=== PATIENT | male | born 1975 | race Caucasian/White ===

== ENCOUNTER 2019-12-08 09:22 | Emergency (ER) | payer OTHER, SELFPAY ==
[2019-12-08 09:23] VITALS: BP 135/87; PULSE 73; RESP 16; TEMP 36.6; O2SAT 96; BMI 29.5
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
--- NOTE | 2019-12-08 09:44 | ED.DEP ---
ED Disposition - Plan for ED Patient: Disposition: Home or Assisted Living Instructions: CONCUSSION, No Wake Up Referrals: Devang Kolb MD [Primary Care Provider] - As Needed Additional Instructions: Hot shower and warm bath to relax the muscles in your neck. Tylenol and Motrin for neck pain and any headaches. You have a mild head injury probably early minor concussion. Plenty of fluids and rest. Increase activity as tolerated. Follow-up if not improving.
== END 2019-12-08 09:56 | disposition home or self-care (01) ==
PROVIDERS: Emergency Provider Emergency Medicine; Family Provider Family Medicine; PCP Family Medicine
DX: S06.0X0A Concussion without loss of consciousness, initial encounter (principal); V53.5XXA Driver of pick-up truck or van injured in collision with car, pick-up truck or van in traffic accident, initial encounter; Y93.9 Activity, unspecified; Y92.9 Unspecified place or not applicable; Y99.9 Unspecified external cause status
CPT/HCPCS: 99282

== ENCOUNTER → 2020-10-31 09:40 | Outpatient (CLI) | payer OTHER, SELFPAY ==
[2020-10-31 12:20] LABS: Absolute Lymphocyte Count 1.45 X10^3/uL (0.83-4.51); Absolute Neutrophil Count 2.6 X10^3/uL (2.0-7.7); Basophil# 0.02 X10^3/uL; Basophil% 0.4 % (0-1); Eosinophil# 0.12 X10^3/uL; Eosinophils% 2.6 % (0-5); Hematocrit 45.1 % (40-54); Hemoglobin 15.4 g/dL (13.0-16.5); Lymphocyte # 1.45 X10^3/ul (4.0); Mean Corp Hgb Conc 34.1 g/dL (32-36); Mean Corpuscular Hgb 29.7 pg (27.0-32.0); Mean Corpuscular Volume 86.9 fL (80-94); Mean Platelet Vol. 10.5 fl (6.2-12.0); Monocyte# 0.45 X10^3/uL; Monocyte% 9.6 % (0-10); NRBC Flagged by Analyzer 0 % (0-5); Neutrophil # 2.62 X10^3/uL (2.7-7.7); Neutrophil % 56.2 % (47-70); Platelet Count 225 K/mm3 (150-450); RBC Distribution Width CV 12.6 % (11.6-14.6); RBC Distribution Width SD 39.7 fl (35.1-43.9); Red Blood Count 5.19 M/mm3 (4.6-6.2); White Blood Count 4.7 K/mm3 (4.4-11.0)
[2020-10-31 12:58] LABS: Anion Gap 5 (5-15); BUN 17 mg/dL (7-18); BUN/Creat Ratio 14.7 RATIO (10-20); Calcium,Total 8.8 mg/dL (8.5-10.1); Chloride 110 mmol/L (98-107); Creatinine, Serum 1.16 mg/dL (0.70-1.30); EST Glomerular Filtration Rate 73 mL/min (>60); Est Glom Filt Rate - Afr Amer 88 mL/min (>60); Glucose 90 mg/dL (74-106); Potassium 3.8 mmol/L (3.5-5.1); Sodium Level 140 mmol/L (136-145); Thyroid Stim Hormone (TSH) 1.12 uIU/mL (0.358-3.74)
== END ==
PROVIDERS: PCP Family Medicine; Referring Provider Family Medicine; Visit Provider Family Medicine
DX: R07.9 Chest pain, unspecified (principal)
CPT/HCPCS: 36415; 80048; 84443; 85025

== ENCOUNTER → 2024-09-06 | Outpatient (CLI) | payer OTHER, SELFPAY ==
[2024-09-06 12:44] LABS: Anion Gap 7 (5-15); BUN 15 mg/dL (7-18); Calcium,Total 9.1 mg/dL (8.5-10.1); Chloride 110 mmol/L (98-107); Cholesterol 162 mg/dL (200); Creatinine, Serum 1.07 mg/dL (0.70-1.30); EST Glomerular Filtration Rate 79 mL/min (>60); Est Glom Filt Rate - Afr Amer 95 mL/min (>60); Glucose 99 mg/dL (74-106); High Density Lipoprotein 45 mg/dL; Potassium 4.1 mmol/L (3.5-5.1); Sodium Level 143 mmol/L (136-145); Triglycerides 192 mg/dL; Very Low Density Lipoprotein 38 mg/dL (5-40)
== END | disposition home or self-care (01) ==
LOC: MFPLAB 09:02
PROVIDERS: Nurse Practitioner Family; PCP Family Medicine; Visit Provider Family Medicine
DX: Z13.1 Encounter for screening for diabetes mellitus (principal); Z13.220 Encounter for screening for lipoid disorders
CPT/HCPCS: 36415; 80048; 80061

== ENCOUNTER → 2025-11-23 | Outpatient (CLI) | payer OTHER, SELFPAY ==
--- OUTSIDE RECORDS SUMMARY | 2025-11-23 07:58 | XMS RPT_ITS | CCD ---
Author Organization [facility] Care Team Providers Care Irrigator Name Role Phone Unavailable Primary Care Provider Henrry Damon Attending Unavailable Henrry Hickey Primary Care Unavailable Unavailable Primary Care Provider LUIS Shook Referring Unavailable SHELBY, LUIS Referring Unavailable LUIS MORENO Attending Unavailable LUIS MORENO Referring Unavailable BEATA DOUGHERTY Attending Unavailable , BEATA Referring Unavailable BEATA DOUGHERTY Referring Unavailable LUIS MORENO Attending Unavailable Allergies Allergy Classification Reported Allergen(s) Allergy Type Date of Onset Reaction(s) Facility (3 sources) Penicillins; Translations: [PENICILLINS] Drug Allergy 06-08-2012 [facility] (1 source) Penicillins Drug allergy (disorder) 12-08-2019 Repository (6 sources) Penicillins Drug Allergy 06-08-2012 [facility] Medications Current Medications Medication Drug Class(es) Dates Sig (Normalized) Sig (Original) Cetirizine (7 sources) Histamine-1 Receptor Antagonist CETIRIZINE HCL (ZYRT EC ORAL) Take by mouth. Active CETIRIZINE HCL ( ZYRTEC ORAL) Take by mouth. 0 Active Comment on above: Take by mouth. doxycycline monohydrate 100 mg oral capsule (1 source) Tetracycline-cla ss Drug Start: 07-23-2025 End: 09-03-2025 take 1 capsule by mouth twice daily doxycycline monohydrate (MONODOX) 100 mg capsule Take 1 capsule by mouth two times a day. 84 capsule 07/23/2025 09/03/2025 Active predniSONE 10 mg oral tablet (4 sources) Start: 07-20-2025 End: 08-04-2025 predniSONE (DELTASONE) 10 mg tablet Take 4 tabs daily x5 days, then 2 tabs daily for 5 days, then 1 tab daily for 5 days. 35 tablet 07/20/2025 08/04/2025 Active Start: 06-27-2023 End: 07-06-2023 predniSONE (DELTASONE) 10 mg tablet Indications: Allergic contact dermatitis due to plants, except food Take 4 tabs daily for 3 days, then 2 tabs daily for 3 days, then 1 tab daily for 3 days with food. 21 tablet 0 06/27/2023 07/06/2023 Active Comment on above: Take 4 tabs daily fo r 3 days, then 2 tabs daily for 3 days, then 1 tab daily for 3 days with food. traMADol hydrochloride 50 mg oral tablet (3 sources) Opioid Agonist Start: 07-20-2025 End: 07-23-2025 take 1-2 tablets by mouth every eight hours as needed for pain traMADol (ULTRAM) 50 mg tablet Indications: Effusion of left knee Take 1-2 tablets by mouth every 8 hours as needed for pain for up to 3 days. for pain. 12 tablet 07/20/2025 07/23/2025 Active Completed/Discontinued Medications Medication Drug Class(es) Dates Sig (Normalized) Sig (Original) betamethasone 3 mg/ml / betamethasone acetate 3 mg/ml injectable suspension (2 sources) Corticosteroid Start: 04-06-2025 End: 04-06-2025 betamethasone acetate-betamethason e sodium phosphate 6 mg injection (CELESTONE) Start: 04-06-2025 End: 04-06-2025 6 mg, Injection - FOR ORTHO USE ONLY, ONCE, 1 dose, Starting on Wed04/06/25 at 1158, Until Wed04/06/25 at 1158 30 ml bupivacaine hydrochloride 5 mg/ml injection (4 sources) Amide Local Anesthetic Start: 07-20-2025 End: 07-20-2025 BUPivacaine (PF) 0.5 % (5 mg/mL) 4 mL injection Start: 07-20-2025 End: 07-20-2025 4 mL, Injection - FOR ORTHO USE ONLY, ONCE, 1 dose, Starting on Wed07/20/25 at 1619, Until Wed07/20/25 at 1619 Start: 04-06-2025 End: 04-06-2025 BUPivacaine (PF) 0.5 % (5 mg /mL) 4 mL injection Start: 04-06-2025 End: 04-06-2025 4 mL, Injection - FOR ORTHO USE ONLY, ONCE, 1 dose, Starting on Wed04/06/25 at 1158, Until Wed04/06/25 at 1158 cyclobenzaprine hydrochloride 10 mg oral tablet (4 sources) Muscle Relaxant Start: 03-02-2022 End: 04-06-2025 take 1 tablet by mouth every eight hours as needed cyclobenzaprine (FLEXERIL) 10 mg tablet Take 1 tablet by mouth three times daily as needed for muscle spasm. 21 tablet 03/02/2022 04/06/2025 Discontinued (Course of therapy completed) Comment on above: Take 1 tablet by [facility] three times daily as needed for muscle spasm. fluticasone (4 sources) Corticosteroid End: 04-06-2025 FLUTICASONE PROPIONATE (FLONASE NASAL) Use in the nose. 04/06/2025 Discontinued (Course of therapy completed) FLUTICASONE PROP IONATE (FLONASE NASAL) Use in the nose. Active FLUTICASONE PROP IONATE (FLONASE NASAL) Use in the nose. 0 Active Comment on above: Use in the nose. 10 ml lidocaine hydrochloride 10 mg/ml injection (4 sources) Antiarrhythmic, Amide Local Anesthetic Start: 07-20-2025 End: 07-20-2025 lidocaine (PF) 10 mg/mL (1 %) 4 mL injection (XYLOCAINE) Start: 07-20-2025 End: 07-20-2025 4 mL, Injection - FOR ORTHO USE ONLY, ONCE, 1 dose, Starting on Wed07/20/25 at 1619, Until Wed07/20/25 at 1619 Start: 04-06-2025 End: 04-06-2025 lidocaine (PF) 10 mg/mL (1 % ) 4 mL injection (XYLOCAINE) Start: 04-06-2025 End: 04-06-2025 4 mL, Injection - FOR ORTHO USE ONLY, ONCE, 1 dose, Starting on Wed04/06/25 at 1158, Until Wed04/06/25 at 1158 mometasone furoate 0.05 mg/actuat metered dose nasal spray (4 sources) Corticosteroid End: 04-06-2025 mometasone (NASONEX) 50 mcg/actuation nasal spray Use 2 Sprays in the nose once daily. 04/06/2025 Discontinued (Course of therapy completed) Comment on above: Use 2 Sprays in the nose once daily. Problems Active Problems Problem Classification Problem Date Documented Date Episodic/Chronic Allergic reactions (1 source) Allergic contact dermatitis caused by plant material; Translations: [Allergic contact dermatitis due to plants, except food] 06-27-2023 Episodic Other infections; including parasitic (1 source) Lyme disease; Translations: [Lyme disease, unspecified] 07-23-2025 Episodic Other injuries and conditions due to external causes (2 sources) Injury of left knee; Translations: [Unspecified injury of left lower leg, initial encounter] 03-28-2025 Episodic Other nervous system disorders (1 source) Other chronic pain; Translations: [Chronic pain of left knee] Onset: 07-20-2025 Chronic Other non-traumatic joint disorders (3 sources) Effusion of joint of left knee; Translations: [Effusion, left knee] 04-06-2025 Episodic Other non-traumatic joint disorders (2 sources) Pain in left knee; Translations: [Pain in joint, lower leg] Onset: 07-20-2025 07-20-2025 Episodic Other non-traumatic joint disorders (2 sources) Effusion, left knee; Translations: [Effusion of left knee] Onset: 07-20-2025 Episodic Other screening for suspected conditions (not mental disorders or infectious disease) (1 source) Encounter for screening for diabetes mellitus; Translations: [Encounter for screening for diabetes mellitus] Onset: 09-29-2024 Episodic Residual codes; unclassified (1 source) FH: Gout; Translations: [Family history of other diseases of the musculoskeletal system and connective tissue] 07-20-2025 Episodic Residual codes; unclassified (1 source) Family history of other diseases of the musculoskeletal system and connective tissue; Translations: [Family history of gout] Onset: 07-20-2025 Episodic Unclassified (2 sources) Injury of left knee 03-29-2025 Unclassified (1 source) Effusion of joint of left knee 07-20-2025 Past or Other Problems Problem Classification Problem Date Documented Da te Episodic/Chronic Other injuries and conditions due to external causes (1 source) Unspecified injury of left lower leg, initial encounter; Translations: [Injury of left knee, initial encounter] Onset: 03-28-2025 Episodic Results Test Name Value Interpretation Reference Range Facility B. burgdorferi IgG and IgM p danette (S)on 07-21-2025 B. burgdorferi IgG+IgM Qn (S) Positive Abnormal Negative [facility] Comment on above: Order Comment: Jared espino Type: BLOOD SPECIMEN Ordering Facility: [facility] Address: [address] [place] [address] Result Comment: Borr manuela burgdorferi antibody screening test indicates possible presence of Lyme-specific antibodies. Current testing guidelines recommend that all positive or equivocal screen test results be confirmed by a standardized Lyme immunoblot assay following CDC criteria. For final interpretation please refer to Lyme immunoblot result(s). Clinical and epidemiological correction is required. Lyme Western Blot confirmation test has been ordered and billed. Performed By: #### 3 4942-3, 17014-9 #### [facility] CLIA [id number] [address] [place] [address] [place] B. burgdorferi IgG panel IB (S)on 07-21-2025 B. burgdorferi IgG band pattern IB (S) [Interp] p-93 Normal [facility] Comment on above: Order Comment: Jared espino Type: BLOOD SPECIMEN Ordering Facility: [facility] Address: [address] [place] [address] Result Comment: p-66 p-45 p-41 p-39 p-30 p-28 p-18 Performed By: #### 3 4942-3, 24850-5 #### [facility] CLIA [id number] [address] [place] [address] [place] B. burgdorferi IgG IB Ql (S) Positive Abnormal Negative [facility] Comment on above: Order Comment: Jared espino Type: BLOOD SPECIMEN Ordering Facility: [facility] Address: [address] [place] [address] Result Comment: CDC criteria for a positive Western blot are the presence of >=5 bands for IgG. Performed By: #### 3 4942-3, 25707-6 #### [facility] CLIA [id number] [address] [place] [address] [place] INTERPRETATION (LYME ABS/WB) Normal [facility] Comment on above: Order Comment: Specartie espino Type: BLOOD SPECIMEN Ordering Facility: [facility] Address: [address] [place] [address] Result Comment: Anti bodies against Borrelia burgdorferi were detected by the IgG Western Blot. This could represent either a previous exposure (i.e. remote disease) or the latter stage of a recent infection. If differentiation of is desired, then repeat screening with reflex to both IgM and IgG Western Blot is recommended. Performed By: #### 3 4942-3, 86882-9 #### [facility] CLIA [id number] [address] [place] [address] [place] [address] [place] CBC W Auto Differential pane l (Bld)on 07-21-2025 Basophils (Bld) [#/Vol] 10*3/uL Normal <0.11 [facility] Comment on above: Order Comment: Jared espino Type: BLOOD SPECIMEN Ordering Facility: [facility] Address: [address] [place] [address] Performed By: #### 5 7021-8 #### [facility] CLIA [id number] [address] [place] [address] [place] Basophils/100 WBC (Bld) 0.1 % Normal [facility] Comment on above: Order Comment: Jared espino Type: BLOOD SPECIMEN Ordering Facility: [facility] Address: [address] [place] [address] Performed By: #### 5 7021-8 #### [facility] CLIA [id number] [address] [place] Differential cell count method Nom (Bld) Auto Normal [facility] Comment on above: Order Comment: Speci men Type: BLOOD SPECIMEN Ordering Facility: [facility] Address: [address] [place] [address] Performed By: #### 5 7021-8 #### [facility] CLIA [id number] [address] [place] [address] [place] Eosinophils (Bld) [#/Vol] 10*3/uL Normal <0.46 [facility] Comment on above: Order Comment: Speci men Type: BLOOD SPECIMEN Ordering Facility: [facility] Address: [address] [place] [address] Performed By: #### 5 7021-8 #### [facility] CLIA [id number] [address] [place] [address] [place] Eosinophils/100 WBC (Bld) 0.0 % Normal [facility] Comment on above: Order Comment: Speci men Type: BLOOD SPECIMEN Ordering Facility: [facility] Address: [address] [place] [address] Performed By: #### 5 7021-8 #### [facility] CLIA [id number] [address] [place] [address] [place] Erythrocyte distribution width (RBC) [Ratio] 13.0 % Normal 11.5-15.0 [facility] Comment on above: Order Comment: Speci men Type: BLOOD SPECIMEN Ordering Facility: [facility] Address: [address] [place] [address] Performed By: #### 5 7021-8 #### [facility] CLIA [id number] [address] [place] [address] [place] Hematocrit (Bld) [Volume fraction] 43.0 % Normal 39.0-51.0 [facility] Comment on above: Order Comment: Speci men Type: BLOOD SPECIMEN Ordering Facility: [facility] Address: [address] [place] [address] Performed By: #### 5 7021-8 #### [facility] CLIA [id number] [address] [place] [address] [place] Hemoglobin (Bld) [Mass/Vol] 14.4 g/dL Normal 13.0-17.0 [facility] Comment on above: Order Comment: Speci men Type: BLOOD SPECIMEN Ordering Facility: [facility] Address: [address] [place] [address] Performed By: #### 5 7021-8 #### [facility] CLIA [id number] [address] [place], [place] [id number] [place] [address] [place] Immature granulocytes (Bld) [#/Vol] 0.03 10*3/uL Normal <0.10 [facility] Comment on above: Order Comment: Speci men Type: BLOOD SPECIMEN Ordering Facility: [facility] Address: [address] [place] [address] Performed By: #### 5 7021-8 #### [facility] CLIA [id number] [address] [place] Immature granulocytes/100 WBC (Bld) 0.2 % Normal [facility] Comment on above: Order Comment: Speci men Type: BLOOD SPECIMEN Ordering Facility: [facility] Address: [address] [place] [address] Performed By: #### 5 7021-8 #### [facility] CLIA [id number] [address] [place] Lymphocytes (Bld) [#/Vol] 0.81 10*3/uL Low 1.00-4.00 [facility] Comment on above: Order Comment: Speci men Type: BLOOD SPECIMEN Ordering Facility: [facility] Address: [address] [place] [address] Performed By: #### 5 7021-8 #### [facility] CLIA [id number] [address] [place] [address] [facility] Lymphocytes/100 WBC (Bld) 5.4 % Normal [facility] Comment on above: Order Comment: Speci men Type: BLOOD SPECIMEN Ordering Facility: [facility] Address: [address] [place] [address] Performed By: #### 5 7021-8 #### [facility] CLIA [id number] [address] [place] [address] [place] MCH (RBC) [Entitic mass] 28.5 pg Normal 26.0-34.0 [facility] Comment on above: Order Comment: Speci men Type: BLOOD SPECIMEN Ordering Facility: [facility] Address: [address] [place] [address] Performed By: #### 5 7021-8 #### [facility] CLIA [id number] [address] [place] [address] [place] MCHC (RBC) [Mass/Vol] 33.5 g/dL Normal 30.5-36.0 [facility] Comment on above: Order Comment: Speci men Type: BLOOD SPECIMEN Ordering Facility: [facility] Address: [address] [place] [address] Performed By: #### 5 7021-8 #### [facility] CLIA [id number] [address] [place] [address] [place] MCV (RBC) [Entitic vol] 85.1 fL Normal 80.0-100.0 [facility] Comment on above: Order Comment: Speci men Type: BLOOD SPECIMEN Ordering Facility: [facility] Address: [address] [place] [address] Performed By: #### 5 7021-8 #### [facility] CLIA [id number] [address] [place] [address] [place] Monocytes (Bld) [#/Vol] 0.53 10*3/uL Normal <0.87 [facility] Comment on above: Order Comment: Speci men Type: BLOOD SPECIMEN Ordering Facility: [facility] Address: [address] [place] [address] Performed By: #### 5 7021-8 #### [facility] CLIA [id number] [address] [place] [address] [place] Monocytes/100 WBC (Bld) 3.5 % Normal [facility] Comment on above: Order Comment: Speci men Type: BLOOD SPECIMEN Ordering Facility: [facility] Address: [address] [place] [address] Performed By: #### 5 7021-8 #### [facility] CLIA [id number] [address] [place] [address] [place] Neutrophils (Bld) [#/Vol] 13.58 10*3/uL High 1.45-7.50 [facility] Comment on above: Order Comment: Speci men Type: BLOOD SPECIMEN Ordering Facility: [facility] Address: [address] [place] [address] Performed By: #### 5 7021-8 #### [facility] CLIA [id number] [address] [place] [address] [place] Neutrophils/100 WBC (Bld) 90.8 % Normal [facility] Comment on above: Order Comment: Speci men Type: BLOOD SPECIMEN Ordering Facility: [facility] Address: [address] [place] [address] Performed By: #### 5 7021-8 #### [facility] CLIA [id number] [address] [place] [address] [place] Nucleated RBC (Bld) [#/Vol] Normal [facility] Comment on above: Order Comment: Speci men Type: BLOOD SPECIMEN Ordering Facility: [facility] Address: [address] [place] [address] Performed By: #### 5 7021-8 #### [facility] CLIA [id number] [address] [place] [address] [place] Nucleated RBC/100 WBC (Bld) [Ratio] Normal [facility] Comment on above: Order Comment: Speci men Type: BLOOD SPECIMEN Ordering Facility: [facility] Address: [address] [place] [address] Performed By: #### 5 7021-8 #### [facility] CLIA [id number] [address] [place] [address] [place] Platelet mean volume (Bld) [Entitic vol] 10.1 fL Normal 9.0-12.7 [facility] Comment on above: Order Comment: Speci men Type: BLOOD SPECIMEN Ordering Facility: [facility] Address: [address] [place] [address] Performed By: #### 5 7021-8 #### [facility] CLIA [id number] [address] [place] [address] [place] Platelets (Bld) [#/Vol] 236 10*3/uL Normal 150-400 [facility] Comment on above: Order Comment: Speci men Type: BLOOD SPECIMEN Ordering Facility: [facility] Address: [address] [place] [address] Performed By: #### 5 7021-8 #### [facility] CLIA [id number] [address] [place] [address] [place] RBC (Bld) [#/Vol] 5.05 10*6/uL Normal 4.20-6.00 [facility] Comment on above: Order Comment: Speci men Type: BLOOD SPECIMEN Ordering Facility: [facility] Address: [address] [place] [address] Performed By: #### 5 7021-8 #### [facility] CLIA [id number] [address] [place], [place] [address] [place] [address] [facility] WBC (Bld) [#/Vol] 14.97 10*3/uL High 3.70-11.00 [facility] Comment on above: Order Comment: Speci men Type: BLOOD SPECIMEN Ordering Facility: [facility] Address: [address] [place] [address] Performed By: #### 5 7021-8 #### [facility] CLIA [id number] [address] [place], [place] [address] [place] [address] [place] CRP SerPl-mCncon 07-21-2025 CRP [Mass/Vol] 8.4 mg/dL High <0.9 [facility] Comment on above: Order Comment: Speci men Type: BLOOD SPECIMEN Ordering Facility: [facility] Address: [address] [place] [address] Performed By: #### 1 988-5 #### [facility] CLIA [id number] [address] [place], [place] [address] [place] [address] [facility] ESR Westergren method (Bld) [Velocity]on 07-21-2025 ESR (Bld) [Velocity] 26 mm/h High 0-15 [facility] Comment on above: Order Comment: Speci men Type: BLOOD SPECIMEN Ordering Facility: [facility] Address: [address] [place] [address] Performed By: #### 4 537-7 #### [facility] CLIA [id number] [address] [place] [address] [place] [address] [place] MRI KNEE WO IVCON LTon 07-21 MRI KNEE WO IVCON LT * * *Final Report* * * DATE OF EXAM: Jul 21 2025 12:11PM [facility]DM 0212 - MRI KNEE WO IVCON LT / PROCEDURE REASON: Effusion of left knee * * * * Physician Interpretation * * * * EXAM: MRI LEFT KNEE CLINICAL HISTORY: Left knee pain COMPARISON: Knee radiographs 03/28/2025 TECHNIQUE: Routine MRI left knee FINDINGS: There is an undersurface tear at the anterior horn lateral meniscus contacting the inferior articular surface (sagittal image 20 of series 6). Articular cartilage is maintained in the lateral compartment. Lateral collateral ligament and biceps femoris tendon are intact. Iliotibial band and popliteus tendon are intact. Joint fluid extends into the popliteus tendon sheath. Anterior and posterior cruciate ligaments are intact. Complex tear at the posterior horn medial meniscus contacts the inferior articular surface (sagittal images 9-11 of series 6). Mild chondral thinning in the medial compartment. Medial collateral ligament is intact. Quadriceps and patellar tendons are intact. Patellofemoral articular cartilage is maintained. There is a moderate size knee joint effusion. Moderate leaking popliteal cyst noted with fluid tracking along the superficial margin of the medial gastrocnemius. There is associated synovial thickening/synovitis within the popliteal cyst. Overall this measures 6.3 x 2.6 x 7.7 cm. There is no fracture or pathologic marrow replacing lesion. IMPRESSION: 1. Undersurface tear at the anterior horn lateral meniscus. 2. Complex tear at the posterior horn medial meniscus. 3. Mild chondral thinning in the medial compartment. 4. Moderate-sized joint effusion. Moderate-sized leaking popliteal cyst with associated synovial thickening/synovitis. Manager Floral: LONI Transcribe Date/Time: Jul 24 2025 9:09A Dictated by : NGHIA NOGUERA MD This examination was interpreted and the report reviewed and electronically signed by: NGHIA NOGUERA MD on Jul 24 2025 9:16AM EST [id number] Normal [facility] Bacteria Fld Culton 07-20-20 25 Bacteria identified Cx Nom (Body fld) CULTURE, BODY FLD: No growth GRAM STAIN: No organisms seen Few Polymorphonuclear leukocytes Gram stain from primary specimen Normal [facility] Comment on above: Performed By: #### 6 11-4 #### [facility] CLIA [id number] [address] [place] [address] CNOVon 07-20-2025 CNOV Office Visit (FRFHWS ) CAMERON HODGE ([id number]) 1975 [employer] Date Time Provider Department 07/20/25 3:30 PM LUIS MORENO V FRWS During your visit today, we recorded the following information about you: Temperature 98.8 degrees Addie Ogden MA 07/20/2025 4:20 PM Signed AMB ROOMING INTAKE FLOWSHEET DATA Pain Pain Level: 7 (as high as 10) Pain Location: Knee-Left Description: Burning, Dull, Pressure Duration Amount of Time: 1 Duration Units: Weeks Frequency: Continuous Intervention/Comfort measure: Medication, Cold Luis Moreno V, DO 07/20/2025 4:20 PM Signed Subjective Volodymyr [place] is a 50-year-old male presenting with acute exacerbation of left knee swelling and pain. Volodymyr reports a significant increase in left knee swelling and pain since yesterday, describing the swelling as ballooning up and causing a lot of pressure. He notes that the knee has been problematic for several months, but the symptoms have markedly worsened over the past two days. He describes the pain as shooting, particularly when bending the knee to get into a car, and reports a feeling of tightness around the knee. He also mentions a sensation of feeling feverish and notes that the knee went from feeling cold to hot very quickly. 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 He also mentions that his daughter jumped on him, which he believes may have contributed to the current condition. He has been sitting at his desk more frequently and in positions that cause discomfort when standing up, which he thinks may have exacerbated the issue. He also walks a lot, which he believes may not have helped the situation. Volodymyr has not been wrapping or elevating the knee but has been using a cold therapy device for the past two days. He has a family history of gout on his mother's side, with both grandparents affected. He denies any new twists or turns of the knee. Constitutional: (+) feverish sensation, (+) fatigue Ears/Nose/Mouth/Throat : (+) dry mouth Musculoskeletal: (+) left knee swelling, (+) left knee pressure, (+) left knee pain, (+) left knee instability, (+) left calf pain Neurological: (+) lightheadedness Objective Temperature 37.1 ?C (98.8 ?F), temperature source Oral. General: No acute distress. Temp 98.6 f MSK/Ext: Significant swelling of the knee; tenderness noted; aspiration performed with fluid removed; improved knee flexion and ambulation post-aspiration. Labs: (Today) Synovial fluid analysis (left knee): Specimen obtained via arthrocentesis; submitted for bacterial culture, Gram stain, and crystal analysis. Assessment AND Plan 1. Effusion of left knee (M25.462) 2. Chronic pain of left knee (M25.562) Acute exacerbation of chronic left knee pain with significant effusion, swelling, and pressure. Differential includes gout, given family history, as well as other inflammatory or infectious etiologies. - Performed aspiration of left knee effusion. - Ordered synovial fluid analysis, including culture and crystal analysis, to evaluate for gout or other causes. - Ordered MRI of the left knee to assess for structural injury. - Start tapered dose of prednisone to address joint inflammation. - Provided education on the importance of elevation and rest. - Discussed that if gout is confirmed, further workup and consideration of chronic management may be necessary. 3. Family history of gout (Z82.69) Large Joint Arthro/Inj: L knee joint 07/20/2025 4:19 PM The procedure site was prepped in the usual sterile fashion. Site: L knee joint Aspirate: 30 mL cloudy and yellow; sent for lab analysis Anesthetics: 4 mL lidocaine (PF) 10 mg/mL (1 %); 4 mL BUPivacaine (PF) 0.5 % (5 mg/mL) Outcome: Tolerated well, no immediate complications Post-injection instructions were reviewed with the patient and the patient voiced understanding of these instructions. Informed Consent Consent Obtained: Verbal Benton Protocol SIGN IN TIME OUT Recording using AxioMx software for draft documentation of the visit was discussed with the patient/authorized civil rights representative; all questions welcomed and answered. Patient/authorized civil rights representative agreed to proceed Addie Ogden MA 07/20/2025 4:26 PM Signed Addended by: ADDIE OGDEN on: 07/20/2025 04:26 PM Modules accepted: Luis Grimes V, DO 07/21/2025 7:37 AM Signed Addended by: LUIS MORENO V on: 07/21/2025 07:37 AM Modules accepted: Orders Luis Moreno V, 07/21/2025 7:56 AM Signed Addended by: LUIS MORENO V on: 07/21/2025 07:56 AM Modules accepted: Orders Referring Provider: LUIS MORENO V [[id number]] Allergies As of Date: 07/20/2025 Noted Allergy Reaction PENICILLINS 06/08/2012 4 - Hives Date Reviewed: 07/20/2025 Reviewed by: Addie Ogden MA - Ful (more content not included)... Normal [facility] Large Joint Arthro/Inj: L kn ee jointon 07-20-2025 Luis Moreno V, DO 07/20/2025 4:20 PM Large Joint Arthro/Inj: L knee joint 07/20/2025 4:19 PM The procedure site was prepped in the usual sterile fashion. Site: L knee joint Aspirate: 30 mL cloudy and yellow; sent for lab analysis Anesthetics: 4 mL lidocaine (PF) 10 mg/mL (1 %); 4 mL BUPivacaine (PF) 0.5 % (5 mg/mL) Outcome: Tolerated well, no immediate complications Post-injection instructions were reviewed with the patient and the patient voiced understanding of these instructions. Informed Consent Consent Obtained: Verbal Benton Protocol SIGN IN TIME OUT [facility] SYNOVIAL FLUID MANUAL DIFFon 07-20-2025 DIF TTL, SYNOVIAL FLUID 100 cells counted Normal [facility] Comment on above: Order Comment: Speci men Type: FLUID SPECIMEN Ordering Facility: [facility] Address: [address] [place] [address] Performed By: #### Diana JOSHI SFCRID #### [facility] CLIA [id number] [address] [place] [address] [place] [facility] CLIA [id number] [address] [place] [address] [place] #### [id number] #### [facility] CLIA [id number] [address] [place] [address] [place] LYMPH%, SF 2 Normal [facility] Comment on above: Order Comment: Speci men Type: FLUID SPECIMEN Ordering Facility: [facility] Address: [address] [place] [address] Performed By: #### Diana JOSHI SFCRID #### [facility] CLIA [id number] [address] [place] [address] [place] [facility] CLIA [id number] [address] [place] [address] [place] #### [id number] #### [facility] CLIA [id number] [address] [place] [address] [place] MACRO%, SF 3 Normal [facility] Comment on above: Order Comment: Speci men Type: FLUID SPECIMEN Ordering Facility: [facility] Address: [address] [place] [address] Performed By: #### R CATHIEF, SFCRID #### [facility] CLIA [id number] [address] [place] [address] [place] [facility] CLIA [id number] [address] [place], [place] [id number] [place] #### [id number] #### [facility] CLIA [id number] [address] [place] [address] [place] MONO%, SF 8 Normal [facility] Comment on above: Order Comment: Speci men Type: FLUID SPECIMEN Ordering Facility: [facility] Address: [address] [place] [address] Performed By: #### MISTY CAGE #### [facility] CLIA [id number] [address] [place] [address] [place] [facility] CLIA [id number] [address] [place] [address] [place] #### [id number] #### [facility] CLIA [id number] [address] [place] [address] [place] NEUT% 87 High 0-<25 [facility] Comment on above: Order Comment: Speci men Type: FLUID SPECIMEN Ordering Facility: [facility] Address: [address] [place] [address] Performed By: #### MISTY CAGE #### [facility] CLIA [id number] [address] [place] [address] [place] [facility] CLIA [id number] [address] [place] [address] [place] #### [id number] #### [facility] CLIA [id number] [address] [place] [address] [place] SYNOVIAL FLUID, CRYSTAL ID/P ATHOLOGIST INTERPRETATIONon 07-20-2025 CRYSTAL PRELIM, SF PRELIMINARY REPORT N o diagnostic crystals seen. SEE FINAL SF PATH REVIEW Normal [facility] Comment on above: Order Comment: Speci men Type: FLUID SPECIMEN Ordering Facility: [facility] Address: [address] [place] [address] Performed By: #### MISTY CAGE #### [facility] CLIA [id number] [address] [place] [address] [place] [facility] CLIA [id number] [address] [place] [id number] [place] #### [id number] #### [facility] CLIA [id number] [address] [place] [address] [place] CRYSTAL REVIEW Reviewed by MD Shiva Leos [facility] Comment on above: Order Comment: Speci men Type: FLUID SPECIMEN Ordering Facility: [facility] Address: [address] [place] [address] Performed By: #### MISTY CAGE #### [facility] CLIA [id number] [address] [place] [address] [place] [facility] CLIA [id number] [address] [place] [address] [place] #### [id number] #### [facility] CLIA [id number] [address] [place] [address] [place] Crystals LM Nom (Syn fld) None seen Normal None seen [facility] Comment on above: Order Comment: Speci men Type: FLUID SPECIMEN Ordering Facility: [facility] Address: [address] [place] [address] Performed By: #### MISTY CAGE #### [facility] CLIA [id number] [address] [place] [address] [place] [facility] CLIA [id number] [address] [place], [place] [address] [place] #### [id number] #### [facility] CLIA [id number] [address] [place] [address] [place] SYNOVIAL FLUID, ROUTINEon Clarity (Unsp spec) Clear Normal Clear Dany [facility] Comment on above: Order Comment: Speci men Type: FLUID SPECIMEN Ordering Facility: [facility] Address: [address] [place] [address] Performed By: #### Daina JOSHI SFCRID #### [facility] CLIA [id number] [address] [place] [address] [place] [facility] CLIA [id number] [address] [place] [address] [place] #### [id number] #### [facility] CLIA [id number] [address] [place] [address] [place] Color (Syn fld) Yellow Normal Yellow [facility] Comment on above: Order Comment: Speci men Type: FLUID SPECIMEN Ordering Facility: [facility] Address: [address] [place] [address] Performed By: #### ROSELYN CAGECRID #### [facility] CLIA [id number] [address] [place] [address] [place] [facility] CLIA [id number] [address] [place] [address] [place] #### [id number] #### [facility] CLIA [id number] [address] [place] [address] [place] RBC Manual cnt (Syn fld) [#/Vol] 37978 /uL High <2000 [facility] Comment on above: Order Comment: Speci men Type: FLUID SPECIMEN Ordering Facility: [facility] Address: [address] [place] [address] Performed By: #### Diana JOSHI SFCRID #### [facility] CLIA [id number] [address] [place] [id number] [place] [facility] CLIA [id number] [address] [place] [address] [place] #### [id number] #### [facility] CLIA [id number] [address] [place] [address] [place] Specimen source Nom (Unsp spec) Knee, Left Normal [facility] Comment on above: Order Comment: Speci men Type: FLUID SPECIMEN Ordering Facility: [facility] Address: [address] [place] [address] Performed By: #### MISTY CAGE #### [facility] CLIA [id number] [address] [place] [address] [place] [facility] CLIA [id number] [address] [place] [address] [place] #### [id number] #### [facility] CLIA [id number] [address] [place] [address] [place] WBC Manual cnt (Syn fld) [#/Vol] 69547 /uL High 0-200 [facility] Comment on above: Order Comment: Speci men Type: FLUID SPECIMEN Ordering Facility: [facility] Address: [address] [place] [address] Performed By: #### MISTY CAGE #### [facility] CLIA [id number] [address] [place] [address] [place] [facility] CLIA [id number] [address] [place] [address] [place] #### [id number] #### [facility] CLIA [id number] [address] [place] [address] [place] CNOVon 04-06-2025 CNOV Office Visit (FRWS ) NAVEENCAMERON Samreen ([id number]) 1975 M Date Time Provider Department 04/06/25 11:30 AM LUIS MORENOWS During your visit today, we recorded the following information about you: MelviAddie MA 04/06/2025 11:59 AM Signed AMB ROOMING INTAKE FLOWSHEET DATA Pain Pain Level: 1 (as high as 8) Pain Location: Knee-Left Description: Shooting Duration Amount of Time: 3 Duration Units: Weeks Frequency: Continuous Intervention/Comfort measure: Exercise Luis Moreno V, DO 04/06/2025 11:59 AM Signed Subjective Volodymyr is a 50-year-old male presenting with left knee pain and instability following an injury sustained approximately 2-3 weeks ago. Volodymyr reports that during , his daughter accidentally dove onto his left leg, causing immediate instability. Despite this, he engaged in extensive walking and physical activities, including mowing the lawn and setting up [employer]. The following day, he experienced significant pain and difficulty bending the knee after a 2.5-mile walk and several hours of desk work. He sought evaluation and treatment, including cryotherapy and the use of a knee brace for three days, which initially provided some relief. However, upon removing the brace, he noted substantial swelling in the entire leg, particularly around the ankles. He continued with cryotherapy and electrical stimulation, which seemed to alleviate the swelling. Currently, Volodymyr reports persistent effusion in the left knee, causing tightness and a sensation of instability, particularly during extension. He notes that the knee loosens up with walking but worsens with prolonged sitting. He denies extreme pain but experiences discomfort during certain movements. An X-ray was performed, showing no bony abnormalities. PAST MEDICAL HISTORY Diagnosis Date Seasonal allergies No past surgical history on file. Ears/Nose/Mouth/Throat : (+) sneezing Musculoskeletal: (+) left knee pain, (+) left knee instability, (+) left knee stiffness Objective There were no vitals taken for this visit. General: No acute distress. MSK/Ext: Left knee joint effusion noted; patellar translation without pain; ACL feels solid, PCL feels soft end point; pain with extension; mild pain with flexion and rotation; discomfort with medial meniscus compression; hesitancy with extension; right knee with clear definition, patella and condyle palpable. Imaging: - Knee X-ray: No bony abnormalities, normal joint space, no bone spurs, no evidence of arthritis, normal patellar alignment. 1. Injury of left knee, initial encounter (S89.92XA) Effusion of left knee (M25.462) Left knee injury occurred a few weeks ago, with subsequent instability and pain. X-ray showed no bony abnormalities, joint narrowing, or bone spurs. Physical exam reveals significant joint effusion, with discomfort on extension and meniscal symptoms. ACL is stable, but PCL feels less supportive. Effusion likely contributing to pain and instability. - Aspirate the left knee to remove fluid and assess its nature (bloody vs. reactive). - Inject cortisone to reduce inflammation and swelling. - Monitor for improvement; if symptoms persist, consider further imaging. Large Joint Arthro/Inj: L knee joint 04/06/2025 11:58 AM The procedure site was prepped in the usual sterile fashion. Site: L knee joint Aspirate: 20 mL clear Medications: 6 mg betamethasone acetate-betamethasone sodium phosphate 6 mg/mL Anesthetics: 4 mL lidocaine (PF) 10 mg/mL (1 %); 4 mL BUPivacaine (PF) 0.5 % (5 mg/mL) Outcome: Tolerated well, no immediate complications Post-injection instructions were reviewed with the patient and the patient voiced understanding of these instructions. Informed Consent Consent Obtained: Verbal Benton Protocol SIGN IN TIME OUT Attestation Recording using AxioMx software for draft documentation of the visit was discussed with the patient/authorized civil rights representative; all questions welcomed and answered. Patient/authorized civil rights representative agreed to proceed Referring Provider: BEATA DOUGHERTY [[id number]] Allergies As of Date: 04/06/2025 Noted Allergy Reaction PENICILLINS 06/08/2012 4 - Hives Date Reviewed: 04/06/2025 Reviewed by: Addie Ogden MA - Fully Assessed Reason for Visit: left knee injury [Other] Primary Visit Diagnosis:Effusion of left knee [M25.462] Other Visit Diagnosis:Injury of left knee, initial encounter [S89.92XA] Order(s):CONSULT TO ORTHOPAEDICS [9031] Order #: [id number]: 1 Large Joint Arthro/Inj: L knee joint [[id number]] Order #: [id number] [] BUPivacaine (PF) 0.5 % (5 mg/mL) 4 mL injectionDisp: Rfl: [] betamethasone acetate-betamethasone sodium phosphate 6 mg injection (CELESTONE)Disp: Rfl: [] lidocaine (PF) 10 mg/mL (1 %) 4 mL injection (XYLOCAINE)Disp: Rfl: P (more content not included)... Normal [facility] Large Joint Arthro/Inj: L kn ee jointon 04-06-2025 Luis Moreno V, DO 04/06/2025 11:59 AM Large Joint Arthro/Inj: L knee joint 04/06/2025 11:58 AM The procedure site was prepped in the usual sterile fashion. Site: L knee joint Aspirate: 20 mL clear Medications: 6 mg betamethasone acetate-betamethasone sodium phosphate 6 mg/mL Anesthetics: 4 mL lidocaine (PF) 10 mg/mL (1 %); 4 mL BUPivacaine (PF) 0.5 % (5 mg/mL) Outcome: Tolerated well, no immediate complications Post-injection instructions were reviewed with the patient and the patient voiced understanding of these instructions. Informed Consent Consent Obtained: Verbal Benton Protocol SIGN IN TIME OUT [facility] CNOVon 03-28-2025 CNOV Office Visit (UCWSTR ) CAMERON HODGE ([id number]) 1975 M Date Time Provider Department 03/28/25 6:30 PM BEATA DOUGHERTY [facility] During your visit today, we recorded the following information about you: Temperature Pulse Respiration Blood pressure 98 degrees 90/minute 16/minute 122/70 Weight 99 kg Beata Dougherty QA TESTER.CY 03/29/2025 10:23 AM Signed [facility] Subjective HPI HPI Cameron Hodge is a 50 year old male who presents today for CC of left knee injury/pain. This started 10 days ago. Has tried otc medication, stim, compression. Symptoms are worsened by rom. Denies past injury. .Patient presents with: Knee Pain: left x 10 days, daughter jumped into side of knee PAST MEDICAL HISTORY Diagnosis Date Seasonal allergies No past surgical history on file. ALLERGIES Penicillins MEDICATIONS cyclobenzaprine (FLEXERIL) 10 mg tablet Take 1 tablet by mouth three times daily as needed for muscle spasm. (Patient not taking: Reported on 06/27/2023) mometasone (NASONEX) 50 mcg/actuation nasal spray Use 2 Sprays in the nose once daily. (Patient not taking: Reported on 03/02/2022 ) CETIRIZINE HCL (ZYRTEC ORAL) Take by mouth. (Patient not taking: Reported on 03/02/2022 ) FLUTICASONE PROPIONATE (FLONASE NASAL) Use in the nose. (Patient not taking: Reported on 03/02/2022 ) FAMILY HISTORY Problem Relation Age of Onset Cancer Father kidney cancer, ? agent orane Social History Tobacco Use Smoking status: Never Smokeless tobacco: Never Substance Use Topics Alcohol use: Yes Comment: occasional Drug use: No Review of Systems Objective BP 122/70 Pulse 90 Temp 36.7 ?C (98 ?F) Resp 16 Wt 99 kg (218 lb 4.1 oz) SpO2 97% Physical Exam Constitutional: General: He is not in acute distress. Appearance: He is not toxic-appearing or diaphoretic. HENT: Head: Normocephalic and atraumatic. Pulmonary: Effort: Pulmonary effort is normal. No accessory muscle usage or respiratory distress. Musculoskeletal: Right knee: No LCL laxity or MCL laxity. Left knee: Swelling present. No erythema. Decreased range of motion. Tenderness present over the lateral joint line. LCL laxity (slight, compared to right.) present. No MCL laxity. Neurological: Mental Status: He is alert and oriented to person, place, and time. {ASSESSMENT/PLAN: 1. Injury of left knee, initial encounter - ICD9: 959.7, ICD10: S89.92XA -no bony abnormality noted on xray -Rest, Ice, Compression, Elevation discussed -discussed use of ibuprofen -follow up with primary care if symptoms persist/worsen in 10-14 days - XR KNEE GENERAL 4V AP BOTH/PA BOTH/LAT/MERC LEFT IMPRESSION: No acute fracture or dislocation. Dictated by : MD Beata CASTRO APRN.ICT ANALYST Disposition The patient was discharged. Procedures Allergies As of Date: 03/28/2025 Noted Allergy Reaction PENICILLINS 06/08/2012 4 - Hives Date Reviewed: 03/28/2025 Reviewed by: Omaira Hanson MA - Fully Assessed Reason for Visit: Knee Pain [132] Cmt: left x 10 days, daughter jumped into side of knee Primary Visit Diagnosis:Injury of left knee, initial encounter [S89.92XA] Order(s):XR KNEE GENERAL 4V AP BOTH/PA BOTH/LAT/MERC LEFT [3308167] Order #: [id number]. #:[id number] CONSULT TO ORTHOPAEDICS [9026] Order #: [id number]: 1 FUTURE Prescriptions as of 03/29/2025 - cyclobenzaprine (FLEXERIL) 10 mg tablet Take 1 tablet by mouth three times daily as needed for muscle spasm. - mometasone (NASONEX) 50 mcg/actuation nasal spray Use 2 Sprays in the nose once daily. - CETIRIZINE HCL (ZYRTEC ORAL) Take by mouth. - FLUTICASONE PROPIONATE (FLONASE NASAL) Use in the nose. Problem List As Of Date: 03/28/2025 (None) Encounter Status:Closed by BEATA DOUGHERTY on 03/29/25 [facility] XR KNEE 4V AP/PA BOTH+LAT/ME R LTon 03-28-2025 XR KNEE 4V AP/PA BOTH+LAT/MARGOTH LT * * *Final Report* * * DATE OF EXAM: Mar 28 2025 7:00PM WOX 5202 - XR KNEE 4V AP/PA BOTH+LAT/MARGOTH LT / PROCEDURE REASON: Injury of left knee, initial encounter * * * * Physician Interpretation * * * * BILATERAL KNEE X-RAY SERIES HISTORY: Injury of left knee, initial encounter TECHNIQUE: 4 views of the left knee and 3 views of the right knee COMPARISON: None available. RESULT: No fracture, dislocation or destructive changes. Joint spaces and articular surfaces are preserved. Trace left knee joint effusion. IMPRESSION: No acute fracture or dislocation. Manager Floral: [facility] Transcribe Date/Time: Mar 28 2025 7:11P Dictated by : ANETA HARRELL MD This examination was interpreted and the report reviewed and electronically signed by: ANETA HARRELL MD on Mar 28 2025 7:13PM EST [id number] Normal [facility] XR Knee - left 4 Viewson IMPRESSION: No acute fracture or dislocation. Manager Floral: [facility] Transcribe Date/Time: Mar 28 2025 7:11P Dictated by : ANETA HARRELL MD This examination was interpreted and the report reviewed and electronically signed by: ANETA HARRELL MD on Mar 28 2025 7:13PM EST DIVISION OF RADIOLOGY * * *Final Report* * * DATE OF EXAM: Mar 28 2025 7:00PM WOX 5202 - XR KNEE 4V AP/PA BOTH+LAT/MARGOTH LT / PROCEDURE REASON: Injury of left knee, initial encounter * * * * Physician Interpretation * * * * BILATERAL KNEE X-RAY SERIES HISTORY: Injury of left knee, initial encounter TECHNIQUE: 4 views of the left knee and 3 views of the right knee COMPARISON: None available. RESULT: No fracture, dislocation or destructive changes. Joint spaces and articular surfaces are preserved. Trace left knee joint effusion. DIVISION OF RADIOLOGY Provider, [facility] - 03/28/2025 * * *Final Report* * * DATE OF EXAM: Mar 28 2025 7:00PM WOX 5202 - XR KNEE 4V AP/PA BOTH+LAT/MARGOTH LT / PROCEDURE REASON: Injury of left knee, initial encounter * * * * Physician Interpretation * * * * BILATERAL KNEE X-RAY SERIES HISTORY: Injury of left knee, initial encounter TECHNIQUE: 4 views of the left knee and 3 views of the right knee COMPARISON: None available. RESULT: No fracture, dislocation or destructive changes. Joint spaces and articular surfaces are preserved. Trace left knee joint effusion. IMPRESSION IMPRESSION: No acute fracture or dislocation. Manager Floral: [facility] Transcribe Date/Time: Mar 28 2025 7:11P Dictated by : ANETA HARRELL MD This examination was interpreted and the report reviewed and electronically signed by: ANETA HARRELL MD on Mar 28 2025 7:13PM EST [facility] Radiology Study observation (narrative) [facility] XR Knee - left 4 ViewsOrdere d By: [facility] Provider on 03-28-2025 [facility] Basic Metabolic Profile (BMP )on 09-06-2024 BUN/CRE 14.0 RATIO Normal 10-20 Comment on above: Order Comment: Order Date: 09/05/24 Order Info: 0667-1 - BMP Order Info: [id number] - LIPID Performed By: #### L 500.2500, L500.4100 #### Laboratory [address] [place], [address] CA,Total 9.1 mg/dL Normal 8.5-10.1 Comment on above: Order Comment: Order Date: 09/05/24 Order Info: 0667-1 - BMP Order Info: [id number] - LIPID Performed By: #### L 500.2500, L500.4100 #### Laboratory [address] [place], [address] Chloride [Moles/Vol] 110 mmol/L High 98-107 [facility] Comment on above: Order Comment: Order Date: 09/05/24 Order Info: 0667-1 - BMP Order Info: [id number] - LIPID Performed By: #### L 500.2500, L500.4100 #### Laboratory [address] [place], [address] CO2 [Moles/Vol] 26.0 mmol/L Normal 21.0-32.0 Comment on above: Order Comment: Order Date: 09/05/24 Order Info: 0667-1 - BMP Order Info: [id number] - LIPID Performed By: #### L 500.2500, L500.4100 #### Laboratory [address] [place], [address] Creatinine [Mass/Vol] 1.07 mg/dL Normal 0.70-1.30 [facility] Comment on above: Order Comment: Order Date: 09/05/24 Order Info: 666-11 - BMP Order Info: [id number] - LIPID Result Comment: The validity of the calculated GFR GFRAA in patients over 70 years has not been determined. Clinical correlation is essential. Performed By: #### L 500.2500, L500.4100 #### Laboratory [address] [place], [address] EST GFR - AA 95 mL/min Normal >60 Comment on above: Order Comment: Order Date: 09/05/24 Order Info: 666-11 - BMP Order Info: [id number] - LIPID Result Comment: Afri can German GFR Calc Performed By: #### L 500.2500, L500.4100 #### Laboratory [address] [place], [address] GAP 7 Normal 5-15 Comment on above: Order Comment: Order Date: 09/05/24 Order Info: 666-11 - BMP Order Info: [id number] - LIPID Performed By: #### L 500.2500, L500.4100 #### Laboratory [address] [place], [address] GFR/1.73 sq M.predicted among non-blacks MDRD (S/P/Bld) [Vol rate/Area] 79 mL/min/{1.73_m2} Normal >60 Comment on above: Order Comment: Order Date: 09/05/24 Order Info: 666-11 - BMP Order Info: [id number] - LIPID Result Comment: Non- GFR Calc Performed By: #### L 500.2500, L500.4100 #### Laboratory [address] [place], [address] Glucose [Mass/Vol] 99 mg/dL Normal 74-106 [facility] Comment on above: Order Comment: Order Date: 09/05/24 Order Info: 0667-1 - BMP Order Info: [id number] - LIPID Performed By: #### L 500.2500, L500.4100 #### Laboratory [address] [place], [address] Potassium [Moles/Vol] 4.1 mmol/L Normal 3.5-5.1 [facility] Comment on above: Order Comment: Order Date: 09/05/24 Order Info: 06 - BMP Order Info: [id number] - LIPID Performed By: #### L 500.2500, L500.4100 #### Laboratory [address] [place], [address] Sodium [Moles/Vol] 143 mmol/L Normal 136-145 [facility] Comment on above: Order Comment: Order Date: 09/05/24 Order Info: 0667- - [facility] Order Info: [id number] - LIPID Performed By: #### L 500.2500, L500.4100 #### Laboratory [address] [place], [address] Urea nitrogen [Mass/Vol] 15 mg/dL Normal 7-18 Comment on above: Order Comment: Order Date: 09/05/24 Order Info: 0667- - BMP Order Info: [id number] - LIPID Performed By: #### L 500.2500, L500.4100 #### Laboratory [address] [place], [address] Lipid Profileon 09-06-2024 Cholesterol [Mass/Vol] 162 mg/dL Normal 200 Comment on above: Order Comment: Order Date: 09/05/24 Order Info: 0667-1 - BMP Order Info: [id number] - LIPID Result Comment: <200 mg/dL Desirable 200-240 mg/dL Borderline >240 mg/dL High Risk Performed By: #### L 500.2500, L500.4100 #### Laboratory [address] [place], [address] Cholesterol in HDL [Mass/Vol] 45 mg/dL Normal Comment on above: Order Comment: Order Date: 09/05/24 Order Info: 0667-1 - BMP Order Info: [id number] - LIPID Result Comment: The drugs N-Acetylcysteine and Metamizole may falsely depress this assay. Reference Range HDL <40 mg/dL Low HDL Cholesterol HDL >or= 60 mg/dL High HDL Cholesterol Performed By: #### L 500.2500, L500.4100 #### Laboratory [address] [place], [address] Cholesterol in LDL [Mass/Vol] 79 mg/dL Normal 0-130 Comment on above: Order Comment: Order Date: 09/05/24 Order Info: 0667- - [facility] Order Info: [id number] - LIPID Performed By: #### L 500.2500, L500.4100 #### Laboratory [address] [place], [address] Cholesterol in VLDL [Mass/Vol] 38 mg/dL Normal 5-40 Comment on above: Order Comment: Order Date: 09/05/24 Order Info: 0667-1 - [facility] Order Info: [id number] - LIPID Performed By: #### L 500.2500, L500.4100 #### Laboratory [address] [place], [address] Triglyceride [Mass/Vol] 192 mg/dL Normal Comment on above: Order Comment: Order Date: 09/05/24 Order Info: 0667-1 - [facility] Order Info: [id number] - LIPID Result Comment: The drugs N-Acetylcysteine and Metamizole may falsely depress this assay. Serum Triglycerides Reference Interval Normal <150 mg/dL Borderline high 150 - 199 mg/dL High 200 - 499 mg/dL Very High > or = 500 mg/dL Performed By: #### L 500.2500, L500.4100 #### Laboratory [address] [place], [place], [address] Vital Signs Date Time Vital Sign Value Performing Clinician Trinity vaca 07-20-2025 16:12-0400 Body temperature 98.8 [degF] Luis Moreno V, Work Phone: [facility] 03-28-2025 18:33-0400 Body temperature 98.01 [degF] Beata Dougherty QA TESTER.ICT ANALYST Work Phone: [facility] 03-28-2025 18:33-0400 Body weight 99 kg Beata Dougherty QA TESTER.ICT ANALYST Work Phone: [facility] 03-28-2025 18:33-0400 Diastolic blood pressure 70 mm[Hg] Beata Dougherty QA TESTER.ICT ANALYST Work Phone: [facility] 03-28-2025 18:33-0400 Heart rate 90 /min Beata Dougherty QA TESTER.ICT ANALYST Work Phone: [facility] 03-28-2025 18:33-0400 Respiratory rate 16 /min Beata Dougherty QA TESTER.ICT ANALYST Work Phone: [facility] 03-28-2025 18:33-0400 SaO2% (BldA) [Mass fraction] 97 % Beata Dougherty QA TESTER.ICT ANALYST Work Phone: [facility] 03-28-2025 18:33-0400 Systolic blood pressure 122 mm[Hg] Beata Dougherty QA TESTER.ICT ANALYST Work Phone: [facility] 06-27-2023 08:23-0400 Body temperature 97.11 [degF] Alana Smith APRN.ICT ANALYST Work Phone: [facility] 06-27-2023 08:23-0400 Body weight 96.98 kg Alana Smith APRN.ICT ANALYST Work Phone: [facility] 06-27-2023 08:23-0400 Diastolic blood pressure 78 mm[Hg] Alana Smith APRN.ICT ANALYST Work Phone: [facility] 06-27-2023 08:23-0400 Heart rate 53 /min Alana Smith APRN.ICT ANALYST Work Phone: [facility] 06-27-2023 08:23-0400 Respiratory rate 16 /min Alana Smith APRN.ICT ANALYST Work Phone: [facility] 06-27-2023 08:23-0400 SaO2% (BldA) [Mass fraction] 96 % Alana Smith APRN.ICT ANALYST Work Phone: [facility] 06-27-2023 08:23-0400 Systolic blood pressure 110 mm[Hg] Alana Smith APRN.ICT ANALYST Work Phone: [facility] Encounters Encounter Date Encounter Type Care Provider Facility Start: 07-23-2025 End: 07-23-2025 Orders Only Luis Moreno DO Work Phone: Orthopaedics Comment on above: Joint pain and swell ing due to Lyme disease (Primary Dx) Start: 07-21-2025 End: 07-21-2025 Subsequent hospital visit by physician [facility] (1.5t) [facility] Comment on above: Effusion of left kne e [M25.462] Start: 07-21-2025 End: 07-21-2025 ambulatory [facility] Facility:[facility] Start: 07-20-2025 End: 07-20-2025 Patient encounter procedure Luis Moreno DO Work Phone: [facility] [place] Comment on above: Effusion of left kne e (Primary Dx); Family history of gout; Chronic pain of left knee Start: 07-20-2025 End: 07-20-2025 ambulatory [facility] Facility:[facility] Start: 04-06-2025 End: 04-06-2025 Patient encounter procedure Luis Moreno DO Work Phone: [facility] [place] Comment on above: Effusion of left kne e (Primary Dx); Injury of left knee, initial encounter Start: 04-06-2025 End: 04-06-2025 ambulatory BEATA GORDON Facility:[facility] Start: 03-28-2025 End: 03-28-2025 Subsequent hospital visit by physician Lazaro [facility] [place] Work Phone: Radiology Comment on above: Injury of left knee, initial encounter [S89.92XA] Start: 03-28-2025 End: 03-28-2025 Patient encounter procedure Beata Dougherty APRN.CNP Work Phone: [facility] Comment on above: Injury of left knee, initial encounter (Primary Dx) Start: 03-28-2025 End: 03-28-2025 ambulatory BEAAT DOUGHERTY Facility:[facility] Start: 09-06-2024 End: 09-06-2024 ambulatory [facility] [place] [facility] Facility: Start: 06-27-2023 End: 06-27-2023 Patient encounter procedure Alana Smith APRN.CNP Work Phone: [facility] Comment on above: Allergic contact rita matitis due to plants, except food (Primary Dx) Procedures Date Procedure Procedure Detail Performing Clinician Start: 07-20-2025 Arthrocentesis aspir &/inj major jt/bursa w/o us Luis Moreno DO Work Phone: Start: 04-06-2025 Arthrocentesis aspir &/inj major jt/bursa w/o us Luis Moreno DO Work Phone: Start: 03-28-2025 Radiologic exam knee complete 4/more views Beata Dougherty APRN.ICT ANALYST Work Phone: Plan of Treatment Date Care Activity Detail Author Start: 09-07-2028 Urine microalbumin profile DTaP,Tdap,Td Vaccine (3 - Td or Tdap) [facility] Start: 07-30-2025 Influenza vaccination C [facility] Start: 07-24-2025 End: 07-24-2025 Patient encounter procedure 07/24/2025 3:00 PM EDT Office Visit [facility] [place] [address] [place], [place] [id number] Luis Moreno V, DO [address] [place], [place] [id number] Lt knee pain [facility] [place] Comment on above: Lt knee pain Start: 07-21-2025 End: 07-21-2025 Patient encounter procedure 07/21/2025 11:45 AM EDT Appointment [facility] [address] [place] [address] MRI KNEE WO IVCON LEFT [facility] Comment on above: MRI KNEE WO IVCON LE FT Start: 04-06-2025 End: 04-06-2025 Patient encounter procedure 04/06/2025 11:30 AM EDT Office Visit [facility] [place] [address] [place] [address] Luis Moreno, Reuben, DO [address] [place], [place] [id number] Injury of left knee, initial encounter [S89.92XA] [facility] [place] Comment on above: Injury of left knee, initial encounter [S89.92XA] Start: 07-30-2024 Covid-19 Vaccine ( season) Covid-19 Vaccine () [facility] Start: 07-30-2024 Influenza vaccination Influenza Vacc ine (#1) [facility] Start: 07-30-2023 Influenza vaccination INFLUENZA (#1) [facility] Start: 11-29-2022 DEPRESSION ASSESSMENT DEPRESSION ASS ESSMENT [facility] Start: 2022 COLOGUARD (FIT-DNA) COLOGUARD (FIT-D NA) [facility] Start: 2022 Colonoscopy COLONOSCOPY [facility] Start: 2022 COLORECTAL CANCER SCREENING COLORECTAL CANCER SCREENING [facility] Start: [address] COLONOGRAPHY [facility] Start: 2022 DIABETES SCREEN DIABETES SCREEN [facility] Start: 2022 Diabetes Screening Diabetes Screenin g [facility] Start: 2022 FECAL OCCULT BLOOD FECAL OCCULT BLOO D [facility] Start: 2022 Screening for malign ant neoplasm of colon [facility] Start: 2022 SIGMOIDOSCOPY SIGMOIDOSCOPY [facility] Start: 01-08-2022 COVID-19 VACCINE (4 - Moderna series) COVID-19 VACCINE (4 - Moderna series) [facility] Start: 02-27-2012 Lipid panel Lipid Screening [facility] Start: 02-27-2012 LIPID SCREEN LIPID SCREEN [facility] Start: 02-27-1996 Hepatitis B Vaccine (1 of 3 - 19+ 3-dose series) Hepatitis B Vaccine (1 of 3 - 19+ 3-dose series) [facility] Start: 02-27-1996 Urine microalbumin profile DTAP,TDAP,TD (1 - Tdap) [facility] Start: 1995 Anxiety Screening Anxiety Screening [facility] Start: 1995 Depression Screening Depression Scre ening [facility] Start: 1995 HEPATITIS C SCREENING HEPATITIS C [facility] Start: 1995 Hepatitis C screening Hepatitis C [facility] Start: 1995 HIV SCREENING HIV SCREENING [facility] Start: 1995 HIV screening [facility] Start: 1977 HEPATITIS B (1 of 3 - 3-dose series) HEPATITIS B (1 of 3 - 3-dose series) [facility] Bacteria identified in Body fluid by Culture BACTERIAL CULTURE AND GRAM STAIN, STERILE BODY FLUID Microbiology Routine Effusion of left knee 07/20/2025 4:03 PM EDT [facility] End: 08-19-2026 MR Knee - left WO contrast MRI KNEE WO IVCON LEFT Radiology Routine Effusion of left knee 1 Occurrences starting 07/20/2025 until 08/19/2026 [facility] Work Phone: Comment on above: 1 Occurrences starti ng 07/20/2025 until 08/19/2026 MR Knee - left WO contrast MRI KNEE WO IVCON LEFT Radiology Routine Effusion of left knee 07/21/2025 12:11 PM EDT [facility] Work Phone: SYNOVIAL FLUID MANUA L DIFF SYNOVIAL FLUID MANUAL DIFF Lab Routine Effusion of left knee 07/20/2025 4:03 PM EDT [facility] SYNOVIAL FLUID, MALISSA ONEIDA ID/PATHOLOGIST INTERPRETATION SYNOVIAL FLUID, CRYSTAL ID/PATHOLOGIST INTERPRETATION Lab Routine Effusion of left knee 07/20/2025 4:03 PM EDT [facility] SYNOVIAL FLUID, ROUTINE SYNOVIAL FLUID, ROUTINE Lab Routine Effusion of left knee 07/20/2025 4:03 PM EDT [facility] Immunizations Immunization Date Immunization Notes Care Provider Fa gretchenrissa 09-07-2018 influenza virus vacc ine, unspecified formulation Lazaro Escoto Work Phone: [facility] Payers Date Payer Category Payer Self-pay 2014 Private Health Insurance MMO [employer] PPO Member Subscriber Plan / Payer (Effective 2014-Present) Name: CAMERON HODGE Relation to Subscriber: Spouse Name: ALEC HODGE Date of : 1975 (Home) Address: [address] [place] [address] [address] [place] [address] Payer ID: Not on file Type: PPO Address: [address] [place] [id number] 2014 Unknown MMO MMO SUPERMED PPO [id number] 2014-Present [phone] [address] [place] [id number] PPO [id number] 2014 Unknown [id number] Unknown [id number] Social History Date Type Detail Facility [facility] Start: 06-27-2023 End: 07-20-2025 Alcohol intake Current drinker of alcohol (finding) [facility] Start: 06-27-2023 End: 04-06-2025 History of Social function [facility] Start: 06-27-2023 End: 04-06-2025 Tobacco use panel [facility] Start: 01-26-2014 [facility] Start: 1975 Sex Assigned At Not on file [facility] Start: 10-30-2012 National Score (1-10 0), lower number is lower risk Not on file [facility] Functional Status Date Assessment Result Facility 05-23-2015 Are you deaf, or do you have serious difficulty hearing No 05/23/2015 11:42 AM Shayy Brantley RN No [facility] 05-23-2015 Are you blind, or do you have serious difficulty seeing, even when wearing glasses No 05/23/2015 11:42 AM Shayy Brantley RN No [facility] 05-23-2015 Do you have serious difficulty walking or climbing stairs No 05/23/2015 11:42 AM Shayy Brantley RN No [facility] 05-23-2015 Do you have difficul ty dressing or bathing No 05/23/2015 11:42 AM Shayy Brantley RN No [facility] 05-23-2015 Because of a physica l, mental, or emotional condition, do you have difficulty doing errands alone such as visiting a physician's office or shopping No 05/23/2015 11:42 AM Shayy Brantley RN No [facility] Mental Status Date Assessment Result Facility 05-23-2015 Because of a physica l, mental, or emotional condition, do you have serious difficulty concentrating, remembering, or making decisions No 05/23/2015 11:42 AM Shayy Brantley RN No [facility] Clinical Notes 06-27-2023 to 07-21-2025 Jamie Dolan, RT(R) - 07/21/2025 11:45 AM EDTAddendum Note - Addie Ogden MA - 07/20/2025 4:26 PM EDTAddendum Note - Addie Ogden MA - 07/20/2025 4:26 PM EDT Note Date & Type Note Facility 07-21-2025 History of Presen t illness Narrative Radiology Service Progress Note PATIENT NAME: Cameron Hodge DATE OF SERVICE: July 21, 2025 TIME: 11:49 AM PATIENT IDENTITY VERIFICATION COMPLETED USING TWO (2) IDENTIFIERS: Name and Date of confirmed by patient verbally. FALL SCREENING: Has the patient had 2 falls in the last year or 1 fall with injury or currently using an Ambulatory Assistive Device (Walker, Cane, Wheelchair, Crutches, etc.)? No PATIENT GENDER DATA: Assigned male at PATIENT RELEVANT IMPLANT DATA REVIEWED: Yes PATIENT PRESENTS WITH AN IMPLANTABLE OR ATTACHED SUPERINTENDENT PLANT PROTECTION: No RADIOLOGY DEPARTMENT: MR; Exam(s) Completed: Lower MSK: Knee, left. Aromatherapy Administered: No PERIPHERAL IV DATA: Not applicable SIGNED BY: RT Brigido(Diana) July 21, 2025 11:49 AM documented in this encounter [facility] 07-21-2025 Note HNO ID: [id number] Author: JAMIE DOLAN RT(R) Service: ? Author Type: Technologist Type: Progress Notes Filed: 07/21/2025 11:49 Note Text: Radiology Service Progress Note PATIENT NAME: Cameron Hodge DATE OF SERVICE: July 21, 2025 TIME: 11:49 AM PATIENT IDENTITY VERIFICATION COMPLETED USING TWO (2) IDENTIFIERS: Name and Date of confirmed by patient verbally. FALL SCREENING: Has the patient had 2 falls in the last year or 1 fall with injury or currently using an Ambulatory Assistive Device (Walker, Cane, Wheelchair, Crutches, etc.)? No PATIENT GENDER DATA: Assigned male at PATIENT RELEVANT IMPLANT DATA REVIEWED: Yes PATIENT PRESENTS WITH AN IMPLANTABLE OR ATTACHED SUPERINTENDENT PLANT PROTECTION: No RADIOLOGY DEPARTMENT: MR; Exam(s) Completed: Lower MSK: Knee, left. Aromatherapy Administered: No PERIPHERAL IV DATA: Not applicable SIGNED BY: RT Brigido(Diana) July 21, 2025 11:49 AM [facility] 07-20-2025 Note Addended by: ADDIE RICE on: 07/20/2025 04:26 PM Modules accepted: Orders [facility] 07-20-2025 Miscellaneous Notes Addended by: ADDIE OGDEN on: 07/20/2025 04:26 PM Modules accepted: Orders documented in this encounter [facility] 07-20-2025 Note HNO ID: [id number] Author: LUIS MORENO, DO Service: ? Author Type: Physician Type: Progress Notes Filed: 07/20/2025 16:20 Note Text: Subjective Volodymyr Hodge is a 50-year-old male presenting with acute exacerbation of left knee swelling and pain. Volodymyr reports a significant increase in left knee swelling and pain since yesterday, describing the swelling as ballooning up and causing a lot of pressure. He notes that the knee has been problematic for several months, but the symptoms have markedly worsened over the past two days. He describes the pain as shooting, particularly when bending the knee to get into a car, and reports a feeling of tightness around the knee. He also mentions a sensation of feeling feverish and notes that the knee went from feeling cold to hot very quickly. 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 He also mentions that his daughter jumped on him, which he believes may have contributed to the current condition. He has been sitting at his desk more frequently and in positions that cause discomfort when standing up, which he thinks may have exacerbated the issue. He also walks a lot, which he believes may not have helped the situation. Volodymyr has not been wrapping or elevating the knee but has been using a cold therapy device for the past two days. He has a family history of gout on his mother's side, with both grandparents affected. He denies any new twists or turns of the knee. Constitutional: (+) feverish sensation, (+) fatigue Ears/Nose/Mouth/Throat: (+) dry mouth Musculoskeletal: (+) left knee swelling, (+) left knee pressure, (+) left knee pain, (+) left knee instability, (+) left calf pain Neurological: (+) lightheadedness Objective Temperature 37.1 ?C (98.8 ?F), temperature source Oral. General: No acute distress. Temp 98.6 f MSK/Ext: Significant swelling of the knee; tenderness noted; aspiration performed with fluid removed; improved knee flexion and ambulation post-aspiration. Labs: (Today) Synovial fluid analysis (left knee): Specimen obtained via arthrocentesis; submitted for bacterial culture, Gram stain, and crystal analysis. Assessment AND Plan 1. Effusion of left knee (M25.462) 2. Chronic pain of left knee (M25.562) Acute exacerbation of chronic left knee pain with significant effusion, swelling, and pressure. Differential includes gout, given family history, as well as other inflammatory or infectious etiologies. - Performed aspiration of left knee effusion. - Ordered synovial fluid analysis, including culture and crystal analysis, to evaluate for gout or other causes. - Ordered MRI of the left knee to assess for structural injury. - Start tapered dose of prednisone to address joint inflammation. - Provided education on the importance of elevation and rest. - Discussed that if gout is confirmed, further workup and consideration of chronic management may be necessary. 3. Family history of gout (Z82.69) Large Joint Arthro/Inj: L knee joint 07/20/2025 4:19 PM The procedure site was prepped in the usual sterile fashion. Site: L knee joint Aspirate: 30 mL cloudy and yellow; sent for lab analysis Anesthetics: 4 mL lidocaine (PF) 10 mg/mL (1 %); 4 mL BUPivacaine (PF) 0.5 % (5 mg/mL) Outcome: Tolerated well, no immediate complications Post-injection instructions were reviewed with the patient and the patient voiced understanding of these instructions. Informed Consent Consent Obtained: Verbal [place] Protocol SIGN IN TIME OUT Recording using [employer] software for draft documentation of the visit was discussed with the patient/authorized civil rights representative; all questions welcomed and answered. Patient/authorized civil rights representative agreed to proceed [facility] 07-20-2025 History of Presen t illness Narrative Associated Order(s): Large Joint Arthro/Inj: L knee joint Post-Procedure Diagnose(s): Effusion of left knee Subjective Volodymyr Hodge is a 50-year-old male presenting with acute exacerbation of left knee swelling and pain. Volodymyr reports a significant increase in left knee swelling and pain since yesterday, describing the swelling as ballooning up and causing a lot of pressure. He notes that the knee has been problematic for several months, but the symptoms have markedly worsened over the past two days. He describes the pain as shooting, particularly when bending the knee to get into a car, and reports a feeling of tightness around the knee. He also mentions a sensation of feeling feverish and notes that the knee went from feeling cold to hot very quickly. 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 He also mentions that his daughter jumped on him, which he believes may have contributed to the current condition. He has been sitting at his desk more frequently and in positions that cause discomfort when standing up, which he thinks may have exacerbated the issue. He also walks a lot, which he believes may not have helped the situation. Volodymyr has not been wrapping or elevating the knee but has been using a cold therapy device for the past two days. He has a family history of gout on his mother's side, with both grandparents affected. He denies any new twists or turns of the knee. Constitutional: (+) feverish sensation, (+) fatigue Ears/Nose/Mouth/Throat: (+) dry mouth Musculoskeletal: (+) left knee swelling, (+) left knee pressure, (+) left knee pain, (+) left knee instability, (+) left calf pain Neurological: (+) lightheadedness Objective Temperature 37.1 C (98.8 F), temperature source Oral. General: No acute distress. Temp 98.6 f MSK/Ext: Significant swelling of the knee; tenderness noted; aspiration performed with fluid removed; improved knee flexion and ambulation post-aspiration. Labs: (Today) Synovial fluid analysis (left knee): Specimen obtained via arthrocentesis; submitted for bacterial culture, Gram stain, and crystal analysis. Assessment & Plan 1. Effusion of left knee (M25.462) 2. Chronic pain of left knee (M25.562) Acute exacerbation of chronic left knee pain with significant effusion, swelling, and pressure. Differential includes gout, given family history, as well as other inflammatory or infectious etiologies. - Performed aspiration of left knee effusion. - Ordered synovial fluid analysis, including culture and crystal analysis, to evaluate for gout or other causes. - Ordered MRI of the left knee to assess for structural injury. - Start tapered dose of prednisone to address joint inflammation. - Provided education on the importance of elevation and rest. - Discussed that if gout is confirmed, further workup and consideration of chronic management may be necessary. 3. Family history of gout (Z82.69) Large Joint Arthro/Inj: L knee joint 07/20/2025 4:19 PM The procedure site was prepped in the usual sterile fashion. Site: L knee joint Aspirate: 30 mL cloudy and yellow; sent for lab analysis Anesthetics: 4 mL lidocaine (PF) 10 mg/mL (1 %); 4 mL BUPivacaine (PF) 0.5 % (5 mg/mL) Outcome: Tolerated well, no immediate complications Post-injection instructions were reviewed with the patient and the patient voiced understanding of these instructions. Informed Consent Consent Obtained: Verbal [place]enton Protocol SIGN IN TIME OUT Recording using AxioMx software for draft documentation of the visit was discussed with the patient/authorized civil rights representative; all questions welcomed and answered. Patient/authorized civil rights representative agreed to proceed AMB ROOMING INTAKE FLOWSHEET DATA Pain Pain Level: 7 (as high as 10) Pain Location: Knee-Left Description: Burning, Dull, Pressure Duration Amount of Time: 1 Duration Units: Weeks Frequency: Continuous Intervention/Comfort measure: Medication, Cold documented in this encounter [facility] 07-20-2025 Note HNO ID: [id number] Author: ADDIE OGDEN MA Service: ? Author Type: Physical Therapist Assistant Type: Progress Notes Filed: 07/20/2025 16:20 Note Text: AMB ROOMING INTAKE FLOWSHEET DATA Pain Pain Level: 7 (as high as 10) Pain Location: Knee-Left Description: Burning, Dull, Pressure Duration Amount of Time: 1 Duration Units: Weeks Frequency: Continuous Intervention/Comfort measure: Medication, Cold [facility] 04-06-2025 History of Presen t illness Narrative Associated Order(s): Large Joint Arthro/Inj: L knee joint Post-Procedure Diagnose(s): Effusion of left knee; Injury of left knee, initial encounter Subjective Volodymyr is a 50-year-old male presenting with left knee pain and instability following an injury sustained approximately 2-3 weeks ago. Volodymyr reports that during , his daughter accidentally dove onto his left leg, causing immediate instability. Despite this, he engaged in extensive walking and physical activities, including mowing the lawn and setting up Easter eggs. The following day, he experienced significant pain and difficulty bending the knee after a 2.5-mile walk and several hours of desk work. He sought evaluation and treatment, including cryotherapy and the use of a knee brace for three days, which initially provided some relief. However, upon removing the brace, he noted substantial swelling in the entire leg, particularly around the ankles. He continued with cryotherapy and electrical stimulation, which seemed to alleviate the swelling. Currently, Volodymyr reports persistent effusion in the left knee, causing tightness and a sensation of instability, particularly during extension. He notes that the knee loosens up with walking but worsens with prolonged sitting. He denies extreme pain but experiences discomfort during certain movements. An X-ray was performed, showing no bony abnormalities. PAST MEDICAL HISTORY Diagnosis Date Seasonal allergies No past surgical history on file. Ears/Nose/Mouth/Throat: (+) sneezing Musculoskeletal: (+) left knee pain, (+) left knee instability, (+) left knee stiffness Objective There were no vitals taken for this visit. General: No acute distress. MSK/Ext: Left knee joint effusion noted; patellar translation without pain; ACL feels solid, PCL feels soft end point; pain with extension; mild pain with flexion and rotation; discomfort with medial meniscus compression; hesitancy with extension; right knee with clear definition, patella and condyle palpable. Imaging: - Knee X-ray: No bony abnormalities, normal joint space, no bone spurs, no evidence of arthritis, normal patellar alignment. 1. Injury of left knee, initial encounter (S89.92XA) Effusion of left knee (M25.462) Left knee injury occurred a few weeks ago, with subsequent instability and pain. X-ray showed no bony abnormalities, joint narrowing, or bone spurs. Physical exam reveals significant joint effusion, with discomfort on extension and meniscal symptoms. ACL is stable, but PCL feels less supportive. Effusion likely contributing to pain and instability. - Aspirate the left knee to remove fluid and assess its nature (bloody vs. reactive). - Inject cortisone to reduce inflammation and swelling. - Monitor for improvement; if symptoms persist, consider further imaging. Large Joint Arthro/Inj: L knee joint 04/06/2025 11:58 AM The procedure site was prepped in the usual sterile fashion. Site: L knee joint Aspirate: 20 mL clear Medications: 6 mg betamethasone acetate-betamethasone sodium phosphate 6 mg/mL Anesthetics: 4 mL lidocaine (PF) 10 mg/mL (1 %); 4 mL BUPivacaine (PF) 0.5 % (5 mg/mL) Outcome: Tolerated well, no immediate complications Post-injection instructions were reviewed with the patient and the patient voiced understanding of these instructions. Informed Consent Consent Obtained: Verbal Benton Protocol SIGN IN TIME OUT Attestation Recording using AxioMx software for draft documentation of the visit was discussed with the patient/authorized civil rights representative; all questions welcomed and answered. Patient/authorized civil rights representative agreed to proceed AMB ROOMING INTAKE FLOWSHEET DATA Pain Pain Level: 1 (as high as 8) Pain Location: Knee-Left Description: Shooting Duration Amount of Time: 3 Duration Units: Weeks Frequency: Continuous Intervention/Comfort measure: Exercise documented in this encounter [facility] 04-06-2025 Note HNO ID: [id number] Author: LUIS MORENO DO Service: ? Author Type: Physician Type: Progress Notes Filed: 04/06/2025 11:59 Note Text: Subjective Volodymyr is a 50-year-old male presenting with left knee pain and instability following an injury sustained approximately 2-3 weeks ago. Volodymyr reports that during , his daughter accidentally dove onto his left leg, causing immediate instability. Despite this, he engaged in extensive walking and physical activities, including mowing the lawn and setting up [employer]. The following day, he experienced significant pain and difficulty bending the knee after a 2.5-mile walk and several hours of desk work. He sought evaluation and treatment, including cryotherapy and the use of a knee brace for three days, which initially provided some relief. However, upon removing the brace, he noted substantial swelling in the entire leg, particularly around the ankles. He continued with cryotherapy and electrical stimulation, which seemed to alleviate the swelling. Currently, Volodymyr reports persistent effusion in the left knee, causing tightness and a sensation of instability, particularly during extension. He notes that the knee loosens up with walking but worsens with prolonged sitting. He denies extreme pain but experiences discomfort during certain movements. An X-ray was performed, showing no bony abnormalities. PAST MEDICAL HISTORY Diagnosis Date Seasonal allergies No past surgical history on file. Ears/Nose/Mouth/Throat: (+) sneezing Musculoskeletal: (+) left knee pain, (+) left knee instability, (+) left knee stiffness Objective There were no vitals taken for this visit. General: No acute distress. MSK/Ext: Left knee joint effusion noted; patellar translation without pain; ACL feels solid, PCL feels soft end point; pain with extension; mild pain with flexion and rotation; discomfort with medial meniscus compression; hesitancy with extension; right knee with clear definition, patella and condyle palpable. Imaging: - Knee X-ray: No bony abnormalities, normal joint space, no bone spurs, no evidence of arthritis, normal patellar alignment. 1. Injury of left knee, initial encounter (S89.92XA) Effusion of left knee (M25.462) Left knee injury occurred a few weeks ago, with subsequent instability and pain. X-ray showed no bony abnormalities, joint narrowing, or bone spurs. Physical exam reveals significant joint effusion, with discomfort on extension and meniscal symptoms. ACL is stable, but PCL feels less supportive. Effusion likely contributing to pain and instability. - Aspirate the left knee to remove fluid and assess its nature (bloody vs. reactive). - Inject cortisone to reduce inflammation and swelling. - Monitor for improvement; if symptoms persist, consider further imaging. Large Joint Arthro/Inj: L knee joint 04/06/2025 11:58 AM The procedure site was prepped in the usual sterile fashion. Site: L knee joint Aspirate: 20 mL clear Medications: 6 mg betamethasone acetate-betamethasone sodium phosphate 6 mg/mL Anesthetics: 4 mL lidocaine (PF) 10 mg/mL (1 %); 4 mL BUPivacaine (PF) 0.5 % (5 mg/mL) Outcome: Tolerated well, no immediate complications Post-injection instructions were reviewed with the patient and the patient voiced understanding of these instructions. Informed Consent Consent Obtained: Verbal Benton Protocol SIGN IN TIME OUT Attestation Recording using AxioMx software for draft documentation of the visit was discussed with the patient/authorized civil rights representative; all questions welcomed and answered. Patient/authorized civil rights representative agreed to proceed [facility] 04-06-2025 Note HNO ID: [id number] Author: ADDIE OGDEN MA Service: ? Author Type: Physical Therapist Assistant Type: Progress Notes Filed: 04/06/2025 11:59 Note Text: AMB ROOMING INTAKE FLOWSHEET DATA Pain Pain Level: 1 (as high as 8) Pain Location: Knee-Left Description: Shooting Duration Amount of Time: 3 Duration Units: Weeks Frequency: Continuous Intervention/Comfort measure: Exercise [facility] 03-28-2025 Note HNO ID: [id number] Author: BEATA DOUGHERTY APRN.CNP Service: ? Author Type: Nurse Practitioner Type: Progress Notes Filed: 03/29/2025 10:23 Note Text: [facility] Subjective HPI HPI Cameron Hodge is a 50 year old male who presents today for CC of left knee injury/pain. This started 10 days ago. Has tried otc medication, stim, compression. Symptoms are worsened by rom. Denies past injury. .Patient presents with: Knee Pain: left x 10 days, daughter jumped into side of knee PAST MEDICAL HISTORY Diagnosis Date Seasonal allergies No past surgical history on file. ALLERGIES Penicillins MEDICATIONS cyclobenzaprine (FLEXERIL) 10 mg tablet Take 1 tablet by mouth three times daily as needed for muscle spasm. (Patient not taking: Reported on 06/27/2023) mometasone (NASONEX) 50 mcg/actuation nasal spray Use 2 Sprays in the nose once daily. (Patient not taking: Reported on 03/02/2022 ) CETIRIZINE HCL (ZYRTEC ORAL) Take by mouth. (Patient not taking: Reported on 03/02/2022 ) FLUTICASONE PROPIONATE (FLONASE NASAL) Use in the nose. (Patient not taking: Reported on 03/02/2022 ) FAMILY HISTORY Problem Relation Age of Onset Cancer Father kidney cancer, ? agent orane Social History Tobacco Use Smoking status: Never Smokeless tobacco: Never Substance Use Topics Alcohol use: Yes Comment: occasional Drug use: No Review of Systems Objective BP 122/70 Pulse 90 Temp 36.7 ?C (98 ?F) Resp 16 Wt 99 kg (218 lb 4.1 oz) SpO2 97% Physical Exam Constitutional: General: He is not in acute distress. Appearance: He is not toxic-appearing or diaphoretic. HENT: Head: Normocephalic and atraumatic. Pulmonary: Effort: Pulmonary effort is normal. No accessory muscle usage or respiratory distress. Musculoskeletal: Right knee: No LCL laxity or MCL laxity. Left knee: Swelling present. No erythema. Decreased range of motion. Tenderness present over the lateral joint line. LCL laxity (slight, compared to right.) present. No MCL laxity. Neurological: Mental Status: He is alert and oriented to person, place, and time. {ASSESSMENT/PLAN: 1. Injury of left knee, initial encounter - ICD9: 959.7, ICD10: S89.92XA -no bony abnormality noted on xray -Rest, Ice, Compression, Elevation discussed -discussed use of ibuprofen -follow up with primary care if symptoms persist/worsen in 10-14 days - XR KNEE GENERAL 4V AP BOTH/PA BOTH/LAT/MERC LEFT IMPRESSION: No acute fracture or dislocation. Dictated by : MD Beata CASTRO APRN.ICT ANALYST Disposition The patient was discharged. Procedures [facility] 03-28-2025 History of Presen t illness Narrative [facility] Subjective HPI HPI Cameron Hodeg is a 50 year old male who presents today for CC of left knee injury/pain. This started 10 days ago. Has tried otc medication, stim, compression. Symptoms are worsened by rom. Denies past injury. .Patient presents with: Knee Pain: left x 10 days, daughter jumped into side of knee PAST MEDICAL HISTORY Diagnosis Date Seasonal allergies No past surgical history on file. ALLERGIES Penicillins MEDICATIONS cyclobenzaprine (FLEXERIL) 10 mg tablet Take 1 tablet by mouth three times daily as needed for muscle spasm. (Patient not taking: Reported on 06/27/2023) mometasone (NASONEX) 50 mcg/actuation nasal spray Use 2 Sprays in the nose once daily. (Patient not taking: Reported on 03/02/2022 ) CETIRIZINE HCL (ZYRTEC ORAL) Take by mouth. (Patient not taking: Reported on 03/02/2022 ) FLUTICASONE PROPIONATE (FLONASE NASAL) Use in the nose. (Patient not taking: Reported on 03/02/2022 ) FAMILY HISTORY Problem Relation Age of Onset Cancer Father kidney cancer, ? agent orane Social History Tobacco Use Smoking status: Never Smokeless tobacco: Never Substance Use Topics Alcohol use: Yes Comment: occasional Drug use: No Review of Systems Objective BP 122/70 Pulse 90 Temp 36.7 C (98 F) Resp 16 Wt 99 kg (218 lb 4.1 oz) SpO2 97% Physical Exam Constitutional: General: He is not in acute distress. Appearance: He is not toxic-appearing or diaphoretic. HENT: Head: Normocephalic and atraumatic. Pulmonary: Effort: Pulmonary effort is normal. No accessory muscle usage or respiratory distress. Musculoskeletal: Right knee: No LCL laxity or MCL laxity. Left knee: Swelling present. No erythema. Decreased range of motion. Tenderness present over the lateral joint line. LCL laxity (slight, compared to right.) present. No MCL laxity. Neurological: Mental Status: He is alert and oriented to person, place, and time. {ASSESSMENT/PLAN: 1. Injury of left knee, initial encounter - ICD9: 959.7, ICD10: S89.92XA -no bony abnormality noted on xray -Rest, Ice, Compression, Elevation discussed -discussed use of ibuprofen -follow up with primary care if symptoms persist/worsen in 10-14 days - XR KNEE GENERAL 4V AP BOTH/PA BOTH/LAT/MERC LEFT IMPRESSION: No acute fracture or dislocation. Dictated by : MD Beata CASTRO APRN.ICT ANALYST Disposition The patient was discharged. Procedures documented in this encounter [facility] 03-28-2025 History of Presen t illness Narrative Radiology Service Progress Note PATIENT NAME: Cameron Hodge DATE OF SERVICE: March 28, 2025 TIME: 6:46 PM PATIENT IDENTITY VERIFICATION COMPLETED USING TWO (2) IDENTIFIERS: Name and Date of confirmed by patient verbally. FALL SCREENING: Has the patient had 2 falls in the last year or 1 fall with injury or currently using an Ambulatory Assistive Device (Walker, Cane, Wheelchair, Crutches, etc.)? No PATIENT GENDER DATA: Assigned male at PATIENT RELEVANT IMPLANT DATA REVIEWED: Not Applicable PATIENT PRESENTS WITH AN IMPLANTABLE OR ATTACHED SUPERINTENDENT PLANT PROTECTION: No RADIOLOGY DEPARTMENT: General X-ray: Exam(s) Completed: Lower Extremity X-Ray(s): Knee, AP / Lat / Tunne / Merchant Left PERIPHERAL IV DATA: Not applicable SIGNED BY: Vick Hudson March 28, 2025 6:46 PM documented in this encounter [facility] 03-28-2025 Note HNO ID: [id number] Author: KLAUDIA URBANO Tech Service: ? Author Type: Technologist Type: Progress Notes Filed: 03/28/2025 19:00 Note Text: Radiology Service Progress Note PATIENT NAME: Cameron Hodge DATE OF SERVICE: March 28, 2025 TIME: 6:46 PM PATIENT IDENTITY VERIFICATION COMPLETED USING TWO (2) IDENTIFIERS: Name and Date of confirmed by patient verbally. FALL SCREENING: Has the patient had 2 falls in the last year or 1 fall with injury or currently using an Ambulatory Assistive Device (Walker, Cane, Wheelchair, Crutches, etc.)? No PATIENT GENDER DATA: Assigned male at PATIENT RELEVANT IMPLANT DATA REVIEWED: Not Applicable PATIENT PRESENTS WITH AN IMPLANTABLE OR ATTACHED SUPERINTENDENT PLANT PROTECTION: No RADIOLOGY DEPARTMENT: General X-ray: Exam(s) Completed: Lower Extremity X-Ray(s): Knee, AP / Lat / Tunne / Merchant Left PERIPHERAL IV DATA: Not applicable SIGNED BY: Vick Hudson March 28, 2025 6:46 PM [facility] 06-27-2023 History of Presen t illness Narrative Images from the original note were not included. Subjective Female with complaints of itching rash on right arm and bilateral legs. Patient says its been about 10 days. Patient says he got into some poison anabel. Patient says it is still itching significantly. Patient denies any other symptoms. The history is provided by the patient. No high school foreign language tutor was used. Review of Systems Constitutional: Negative. Skin: Positive for itching and rash. Objective Physical Exam Constitutional: Appearance: Normal appearance. Pulmonary: Effort: Pulmonary effort is normal. Skin: Comments: Patient has contact dermatitis located in the areas marked above no signs of drainage or infection. Neurological: Mental Status: He is alert. PAST MEDICAL HISTORY Diagnosis Date Seasonal allergies No past surgical history on file. ALLERGIES Penicillins MEDICATIONS predniSONE (DELTASONE) 10 mg tablet Take 4 tabs daily for 3 days, then 2 tabs daily for 3 days, then 1 tab daily for 3 days with food. cyclobenzaprine (FLEXERIL) 10 mg tablet Take 1 tablet by mouth three times daily as needed for muscle spasm. (Patient not taking: Reported on 06/27/2023) mometasone (NASONEX) 50 mcg/actuation nasal spray Use 2 Sprays in the nose once daily. (Patient not taking: Reported on 03/02/2022 ) CETIRIZINE HCL (ZYRTEC ORAL) Take by mouth. (Patient not taking: Reported on 03/02/2022 ) FLUTICASONE PROPIONATE (FLONASE NASAL) Use in the nose. (Patient not taking: Reported on 03/02/2022 ) FAMILY HISTORY Problem Relation Age of Onset Cancer Father kidney cancer, ? agent orane Social History Tobacco Use Smoking status: Never Smokeless tobacco: Never Substance Use Topics Alcohol use: Yes Comment: occasional Drug use: No ASSESSMENT/PLAN: 1. Allergic contact dermatitis due to plants, except food - ICD9: 692.6, ICD10: L23.7 - PREDNISONE 10 MG TABLET Patient was educated about proper use of medication and supportive therapies. Patient will follow-up if signs and symptoms seem to be getting worse not better. Patient was okay with this care plan. Alana Smith APRN.CY documented in this encounter [facility] Evaluation note Diagnosis Allergic contact dermatitis due to plants, except food- Primary Contact dermatitis and other eczema due to plants (except food) [facility] Injury of left knee, initial encounter- Primary [facility] Diagnosis Effusion of left knee- Primary Effusion of lower leg joint Injury of left knee, initial encounter [facility] Effusion of left knee- Primary Effusion of lower leg joint Family history of gout Family history of other endocrine and metabolic diseases Chronic pain of left knee Pain in joint, lower leg [facility] Diagnosis Effusion of left knee Effusion of lower leg joint documented in this encounter [facility] note* Diagnosis Joint pain and swelling due to Lyme disease- Primary Lyme disease documented in this encounter [facility] for visit Narrative* Diagnostic Procedure Only (Urgent) - Closed Specialty Diagnoses / Procedures Referred By Tessy t Referred To Contact XR IMAGING Diagnoses Injury of left knee, initial encounter Procedures XR KNEE GENERAL 4V AP BOTH/PA BOTH/LAT/MERC LEFT RADIOLOGIC EXAM KNEE COMPLETE 4/MORE VIEWS Beata Dougherty APRN.ICT ANALYST [address] [place] [address] Phone: tel: fax: [place] [address] Referral ID Status Reason Start Date Expiration Date V isits Requested Visits Authorized [id number] Closed Auto-Generate d Referral 03/28/2025 04/27/2026 1 1 [facility] for visit Narrative* MRI/CT (Routine) - Closed Specialty Diagnoses / Procedures Referred By Tessy campbell Referred To Contact MR IMAGING Diagnoses Effusion of left knee Procedures MRI KNEE WO IVCON LEFT MRI ANY JT LOWER EXTREM W/O CONTRAST MATRL Luis Moreno V, DO [address] [place] [address] Phone: tel: fax: [place] [address] Referral ID Status Reason Start Date Expiration Date V isits Requested Visits Authorized [id number] Closed Auto-Generate d Referral 07/20/2025 08/19/2026 1 1 [facility] Summary Purpose Family History No Family History Records FoundNo Family History Records FoundNo Family History Records Found Advance Directives No Advanced Directives Records FoundNo Advanced Directives Records FoundNo Advanced Directives Records Found Additional Source Comments Source Comments (unrecognize d section and content) In the event this informatio n is protected by the Federal Confidentiality of Alcohol and Drug Abuse Patient Records regulations: The Federal rules restrict any use of the information to criminally investigate or prosecute any alcohol or drug abuse patient.[facility] event this information is protected by the Federal Confidentiality of Alcohol and Drug Abuse Patient Records regulations: The Federal rules restrict any use of the information to criminally investigate or prosecute any alcohol or drug abuse patient.[facility] event this information is protected by the Federal Confidentiality of Alcohol and Drug Abuse Patient Records regulations: The Federal rules restrict any use of the information to criminally investigate or prosecute any alcohol or drug abuse patient.[facility] event this information is protected by the Federal Confidentiality of Alcohol and Drug Abuse Patient Records regulations: The Federal rules restrict any use of the information to criminally investigate or prosecute any alcohol or drug abuse patient.[facility] the event this information is protected by the Federal Confidentiality of Alcohol and Drug Abuse Patient Records regulations: The Federal rules restrict any use of the information to criminally investigate or prosecute any alcohol or drug abuse patient.[facility] the event this information is protected by the Federal Confidentiality of Alcohol and Drug Abuse Patient Records regulations: The Federal rules restrict any use of the information to criminally investigate or prosecute any alcohol or drug abuse patient.[facility] the event this information is protected by the Federal Confidentiality of Alcohol and Drug Abuse Patient Records regulations: The Federal rules restrict any use of the information to criminally investigate or prosecute any alcohol or drug abuse patient.[facility] Reason for Visit (unrecogniz ed section and content) Reason Comments poison anabel X 9 days on arms Reason Comments Knee Pain left x 10 days, daug hter jumped into side of knee Reason Comments left knee injury Specialty Diagnoses / Procedures Referred By Tessy campbell Referred To Contact Orthopedics Diagnoses Injury of left knee, initial encounter Procedures CONSULT TO ORTHOPAEDICS OFFICE/OUTPATIENT [facility] 60 MINUTES Beata Dougherty, BROOKE.ICT ANALYST [address] [place] [address] Phone: tel: fax: Referral ID Status Reason Start Date Expiration Date V isits Requested Visits Authorized [id number] Closed PCP Requested Referral 03/28/2025 03/28/2026 1 1 Reason Comments follow up left knee (unrecognized sect ion and content) No Status Records FoundNo Status Records FoundNo Status Records Found INFORMATION SOURCE (unrecogn ized section and content) DATE CREATED AUTHOR 10/02/2024 [facility] DATE CREATED AUTHOR AUTHOR'S POLI ATION 07/24/2025 [facility] DATE CREATED AUTHOR AUTHOR'S ORGANIZ ATION 07/27/2025 [facility] FOR RECORDS PERTAINING TO PATIENTS WHO ARE OR HAVE BEEN ENROLLED IN A CHEMICAL DEPENDENCY/SUBSTANCEABUSE PROGRAM, SOME INFORMATION MAY BE OMITTED. This clinical summary was aggregated from multiple sources. Caution should be exercised in using it in the provision of clinical care. This summary normalizes information from multiple sources, and as a consequence, information in this document may materially change the coding, format and clinical context of patient data. In addition, data may be omitted in some cases. CLINICAL DECISIONS SHOULD BE BASED ON THE PRIMARY CLINICAL RECORDS. [facility] provides no warranty or guarantee of the accuracy or completeness of information in this document.
[2025-11-23 10:33] LABS: Anion Gap 10 (7-18); BUN 17 mg/dL (4-19); BUN/Creat Ratio 17.5 RATIO (10-20); Calcium,Total 8.9 mg/dL (7.6-11.0); Carbon Dioxide 22.9 mmol/L (20.0-29.0); Chloride 107 mmol/L (96-106); Cholesterol 175 mg/dL (<=200); Glucose 125 mg/dL (70-99); Low Density Lipoprotein Calc. 92 mg/dL; Potassium 4.4 mmol/L (3.5-5.1); Triglycerides 265 mg/dL; Very Low Density Lipoprotein 53 mg/dL (5-40); cholesterol:hdl ratio screen 4.56
== END | disposition home or self-care (01) ==
LOC: MTLAB 07:41
PROVIDERS: PCP Family Medicine; Referring Provider Nurse Practitioner Family; Visit Provider Nurse Practitioner Family
DX: Z13.1 Encounter for screening for diabetes mellitus (principal); Z13.220 Encounter for screening for lipoid disorders
CPT/HCPCS: 36415; 80048; 80061; 83036